=== PATIENT | male | born 1940 | race Caucasian/White ===

== ENCOUNTER → 2024-12-22 14:08 | Outpatient (REF) | payer OTHER, SELFPAY | LOC: RAD 14:08 | PROVIDERS: ATTENDING PHYSICIAN Internal Medicine Gastroenterology; FAMILY PHYSICIAN Family Medicine | DX: R19.4 Change in bowel habit (principal) | CPT/HCPCS: 74018 ==

== ENCOUNTER 2024-12-23 16:30 | Inpatient (IN) | payer OTHER, SELFPAY ==
[2024-12-23] VITALS (13 sets, daily range): BP systolic 152–179; BP diastolic 69–99; BMI 31.5
--- NOTE | 2024-12-23 09:41 | ED.GENMED ---
ED Provider Triage
<Nando Hillman PA-C - Last Filed: 12/23/24 09:49>
-
Patient seen by provider in Triage?: Seen in Triage
Attestation: A medical screening examination has been initiated by a qualified medical provider. Based on the assessment performed at this time, it has been determined that an emergent medical condition may exist and the patient has been informed
that further medical evaluation and possible additional diagnostic testing may be needed.
HPI: 84-year-old male presents to the emergency department for evaluation of a possible bowel obstruction. Reports abdominal distention and difficulty passing stool. Had an outpatient x-ray yesterday concerning for a large bowel obstruction,
denies pain at this time
GENERAL: Alert , in no apparent distress
EYE: No visual abnormalities.
NECK: Trachea midline
ENT: No visible abnormalities.
LUNGS: No acute respiratory distress
NEUROLOGICAL: Alert and oriented
SKIN: Skin intact. No visible changes.
MUSCULOSKELETAL: Moving extremities normally
PSYCH: Normal and appropriate interaction.
This is a medical evaluation conducted in person to initiate diagnostic evaluation and provide initial therapeutics. Please see further documentation by the treating clinician.
History of Present Illness
<Nando Hillman PA-C - Last Filed: 12/23/24 09:49>
General
Chief Complaint: Abdominal Symptoms
Time Seen by Provider: 12/23/24 11:48
<Magno Tipton MD - Last Filed: 12/23/24 15:05>
History of Present Illness
History of Present Illness:
Patient is an 84-year-old male who presents with constipation abdominal distention and possible obstruction. States he has been having trouble moving his bowels for the past couple of weeks. Reports that it feels too 'tight' to pass. No vomiting
or abdominal pain. No fevers or chills. 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
Phy Exam
<Magno Tipton MD - Last Filed: 12/23/24 15:05>
Physical Exam
Physical Exam:
GENERAL APPEARANCE: NAD, well developed/ well nourished
EYES lids/conjunctiva normal
EARS/NOSE/THROAT Mucous membranes moist, uvula midline without oral pharyngeal erythema, exudate or swelling
HEAD/NECK normocephalic atraumatic, neck is supple.
RESPIRATORY respiratory effort normal, speaks in full sentences, no accessory muscle use. Lungs clear to auscultation without rhonchi, wheezes, rales
CARDIAC Regular rate and rhythm, edema to bilateral lower extremities
ABDOMINAL abdomen is soft and distended. Mildly tender diffusely. No peritoneal signs.
RECTAL: no blood, no masses, unable to expel gas with manipulation
MUSCLES/EXTREMITIES No abnormal range of motion, no swelling.
SKIN Warm, pink and dry. No rashes
NEUROLOGICAL Speech is clear and appropriate. Normal level of consciousness. 5/5 strength in all extremities.
PSYCH Normal mood and affect. Judgement/competence is appropriate
Course
<Nando Hillman PA-C - Last Filed: 12/23/24 09:49>
Orders/Labs/Results
Orders:
Orders
12/23/24 09:48
Iohexol [Omnipaque] See Protocol PO NOW STA
12/23/24 09:49
CT Abd/pel W Iv And Oral Contr Urgent
Comment:
Reason For Exam: suspected large bowel obstruction
12/23/24 10:00
Complete Blood Count/With Diff Urgent
Comprehensive Metabolic Panel Urgent
Lactic Acid Q4H
Comment: CANCEL 2nd LACTIC ACID IF 1st LACTIC ACID IS LESS THAN 2
Abnormal Lab Results
12/23/24
10:00
RBC 4.25 L 10^6/uL
(4.70-6.10)
MCV 95.8 H fL
(80.0-94.0)
MCH 31.3 H pg
(27.0-31.0)
MCHC 32.7 L g/dL
(33.0-37.0)
Absolute Lymphs (auto) 0.9 L 10^3/uL
(1.2-3.4)
Immature Gran % 0.6 H %
(0-0.5)
Lymphocytes % 17.0 L %
(20.5-51.1)
Monocytes % 12.0 H %
(1.7-9.3)
Carbon Dioxide 31 H mmol/L
(22-30)
Glucose 107 H mg/dl
(70-99)
Total Protein 6.2 L g/dl
(6.3-8.2)
12/23/24 10:00
12/23/24 10:00
Vital Signs
Initial and Last Documented VS:
Initial Vital Signs
Temp Pulse Resp BP Pulse Ox
98.2 F 69 16 169/89 98
12/23/24 09:45 12/23/24 09:45 12/23/24 09:45 12/23/24 09:45 12/23/24 09:45
Last Documented Vital Signs
Temp Pulse Resp BP Pulse Ox
98.2 F 63 21 169/72 97
12/23/24 09:45 12/23/24 14:00 12/23/24 14:00 12/23/24 14:00 12/23/24 14:00
<Magno Tipton MD - Last Filed: 12/23/24 15:05>
Orders/Labs/Results
Orders:
Orders
12/23/24 09:48
Iohexol [Omnipaque] See Protocol PO NOW STA
12/23/24 09:49
CT Abd/pel W Iv And Oral Contr Urgent
Comment:
Reason For Exam: suspected large bowel obstruction
12/23/24 10:00
Complete Blood Count/With Diff Urgent
Comprehensive Metabolic Panel Urgent
Lactic Acid Q4H
Comment: CANCEL 2nd LACTIC ACID IF 1st LACTIC ACID IS LESS THAN 2
Abnormal Lab Results
12/23/24
10:00
RBC 4.25 L 10^6/uL
(4.70-6.10)
MCV 95.8 H fL
(80.0-94.0)
MCH 31.3 H pg
(27.0-31.0)
MCHC 32.7 L g/dL
(33.0-37.0)
Absolute Lymphs (auto) 0.9 L 10^3/uL
(1.2-3.4)
Immature Gran % 0.6 H %
(0-0.5)
Lymphocytes % 17.0 L %
(20.5-51.1)
Monocytes % 12.0 H %
(1.7-9.3)
Carbon Dioxide 31 H mmol/L
(22-30)
Glucose 107 H mg/dl
(70-99)
Total Protein 6.2 L g/dl
(6.3-8.2)
12/23/24 10:00
12/23/24 10:00
Vital Signs
Initial and Last Documented VS:
Initial Vital Signs
Temp Pulse Resp BP Pulse Ox
98.2 F 69 16 169/89 98
12/23/24 09:45 12/23/24 09:45 12/23/24 09:45 12/23/24 09:45 12/23/24 09:45
Last Documented Vital Signs
Temp Pulse Resp BP Pulse Ox
98.2 F 63 21 169/72 97
12/23/24 09:45 12/23/24 14:00 12/23/24 14:00 12/23/24 14:00 12/23/24 14:00
<Magno Tipton MD - Last Filed: 12/23/24 15:05>
*Radiology
Radiology exam reviewed: radiology read reviewed
*Pulse Oximetry
Patient hypoxic: no
*Critical Care Note
Total Time (30-74mins, 75-104mins- exclusive of procedures): Not Applicable
ED Attending Note
<Nando Hillman PA-C - Last Filed: 12/23/24 09:49>
-
Portions of this chart may have been created with voice recognition software.� Occasional wrong word or��sound alike� substitutions may have occurred due to the inherent limitations of voice recognition software.
<Magno Tipton MD - Last Filed: 12/23/24 15:05>
ED Attending Note
ED Attending Note:
Patient presents with no distention and constipation. He is nontoxic and well-appearing. He has no vomiting or abdominal pain however given his x-ray findings will CT scan abdomen to rule out obstruction
Reviewed CT results, discussed case with both GI [facility] consultant Dr Smallwood and Dr. Wise with colorectal surgery
Recommend hospitalist admission, they will see patient in consult
he remains stable, and non toxic
Discharge Plan
Departure
Referrals:
Cisco Farris MD [Family Provider] -
Interventions
Interventions:
*Risk Screen - Suicide Last Done: 12/23/24 09:45
*General Assessment Last Done: 12/23/24 12:25
*Neglect/Abuse Screening Last Done: 12/23/24 09:45
ED- Fall Risk Assessment Last Done: 12/23/24 12:34
*ED COVID-19 Vaccine History Last Done: 12/23/24 12:25
CR-Vpgjkh-Dhmtljlfch Assessment Last Done: 12/23/24 12:33
Discharge Date and Time
Print Language: MARTINIQUAIS
[2024-12-23] MEDS: OMNIPAQUE 50 ML PO (09:52)
[2024-12-23 10:09] LABS: % Immature Granulocytes 0.6 % (0-0.5); % Neutrophils 68.4 % (42.2-75.2); Absolute Basophils 0.1 10^3/uL (0-0.2); Absolute Eosinophils 0.1 10^3/uL (0-0.7); Absolute Lymphocytes 0.9 10^3/uL (1.2-3.4); Absolute Monocytes 0.6 10^3/uL (0.1-0.6); Absolute Neutrophils 3.4 10^3/uL (1.4-6.5); Hematocrit 40.7 % (39.0-52.0); Hemoglobin 13.3 g/dL (13.0-18.0); Mean Corp Hgb Conc. 32.7 g/dL (33.0-37.0); Mean Corpuscular Hgb 31.3 pg (27.0-31.0); Mean Corpuscular Volume 95.8 fL (80.0-94.0); Mean Platelet Volume 9.5 fL (7.4-10.4); Nucleated Red Blood Cells % 0 % (-); Platelet Count 175 10^3/uL (130-400); Red Blood Cell Count 4.25 10^6/uL (4.70-6.10); Red Cell Dist. Width 13.3 % (11.5-14.5)
[2024-12-23 10:22] LABS: Lactic Acid 0.8 mmol/L (0.7-2.0)
[2024-12-23 10:38] LABS: ALT (SGPT) 18 U/L (0-50); AST (SGOT) 20 U/L (17-59); Albumin 3.9 g/dl (3.5-5.0); Alkaline Phosphatase 104 U/L (38-126); Blood Urea Nitrogen 17 mg/dl (9-20); Calcium 9.1 mg/dl (8.4-10.2); Carbon Dioxide 31 mmol/L (22-30); Chloride 101 mmol/L (98-107); Glucose 107 mg/dl (70-99); Potassium 4.7 mmol/L (3.5-5.1); Sodium 135 mmol/L (135-145); Total Protein 6.2 g/dl (6.3-8.2); eGFR > 60.00
--- NOTE | 2024-12-23 15:43 | CON.GI ---
Addendum entered and electronically signed by Anne Smallwood DO 12/23/24 18:58:
Patient seen and examined independently of ДМИТРИЙ. I agree with her note with my additions below
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 He comes in at the request of his primary GI doctor, Dr. Barone after getting an outpatient x-ray showing a
significantly dilated left colon. Outpatient he saw Dr. Scott on this week and was complaining of some change in bowel habits were still moving his bowels but they were smaller and softer and he was straining to go. He was not on a previous
bowel regimen but started MiraLAX at the request of his PCP about 3 to 4 weeks ago. He said that did help but it was not sufficient. He did not take any other medications and no rectal therapy. He is only on Lexapro and Ativan. No
cardiopulmonary disease. His father had colon cancer at age 60 and his last colonoscopy was in 2009 having 1 rectal adenoma. He was supposed to repeat every 5 years but has not done so. He has noticed some bloating over the past few weeks as well
but no nausea and no vomiting and no significant abdominal pain.
I did review his images and also spoke to Dr. Nagi Wise from colorectal surgery. We both reviewed the images together. His left-sided distention is significant going all the way into his chest/thorax to the level of the aortic arch.
I took him for a flexible sigmoidoscopy. See the note for details but I was able to place a decompression tube in the descending colon. That has been confirmed on abdominal x-ray which I also reviewed at the bedside.
He is okay for clear liquid diet. Will monitor him over the weekend but likely will need a repeat surgical resection to prevent this from occurring again.
Currently the decompression tube is set to gravity.
I discussed this with the hospitalist. Currently on the monitor he is having some PACs PVCs and possibly A-fib. to get a twelve-lead EKG put him on telemetry
Original Note:
Consultation
-
Date/Time Consultation Requested: 12/23/24 1515
Date/Time Consultation Performed: 12/23/24 1545
Requesting Provider: Magno Durán MD
Performing Provider: ДМИТРИЙ Silverio, Anne Smallwood DO
Reason for Consultation: obstruction
Medical History
Chief Complaint / HPI
Chief Complaint: abdominal distention
History of Present Illness:
Pt is a 84yo with hx minimal past medical issues -- depression, TA polyps, Renal calculi, hepatic cysts, enlarged prostate per imaging and prior hx sigmoid volvulus in 2004. He had colonic decompression and then completed sigmoid colectomy with
Dr. Overton. Path with marked distention c/w volvulus no necrosis or perforation. Pt has transient rate controlled afib with conversion to NSR. He has done extremely well since that time. He has last colonoscopy 2009 with TA polyp and was due
around covid and did not complete. He now presents with onset of bloating over last few weeks with constipation. He has tried miralax with improvement. CT completed 12/23 with gaseous distention of sigmoid and descending with concern for volvulus
and no close loop obstruction. Pseudoobstruction in differential. Other occult cause could be large bowel obstruction at level of rectum with large amount of stools in distal sigmoid.
In review with patient despite distention he denies abdominal pain. He dose admits to some soft stools with miralax use but change in stool pattern. He also noted LE edema starting a few months ago. he denies dysphagia, GERD, nausea,
vomiting, diarrhea, or bleeding. Father with family hx colon CA at age 60. last colonoscopy 06/2010 [facility] - One 9 mm polyp in the rectum (benign appearing). bx tubular adenoma. Denies NSAID or anticoagulation use.
-
Past Medical History
Past Medical History: Arrhythmias (transient afib with prior volulus surgery ) and Other (renal calculi hepatic cyst, enlarged prostate per imaging, TA colon polyps)
Past Surgical History: Bowel Resection (sigmoid resection 2004 for sigmoid volvulus) and Tonsilectomy
Social History
Tobacco: Non-Smoker
Alcohol: None
Drug: None
Living: Alone
Employment: Retired
Family History
Family History: Other (father with colon CA in 60's)
Allergies / Home Medications
Allergy/AdvReac Type Severity Reaction Status Date / Time
NKA - No Known Allergies Allergy Uncoded 03/16/08 13:50
�Medication �Instructions �Recorded
ascorbic acid (vitamin C) 500 mg 500 mg PO DAILY 12/23/24
tablet (Vitamin C)
aspirin 81 mg tablet,delayed 81 mg PO DAILY 12/23/24
release
cholecalciferol (vitamin D3) 25 25 mcg PO DAILY 12/23/24
mcg (1,000 unit) tablet (Vitamin
D3)
escitalopram oxalate 5 mg tablet 5 mg PO DAILY 12/23/24
(Lexapro)
lecithin 400 mg capsule 400 mg PO DAILY 12/23/24
lorazepam 0.5 mg tablet 0.25 mg PO DAILY 12/23/24
saw palmetto 160 mg capsule 160 mg PO DAILY 12/23/24
therapeutic multivitamin 1 tab PO DAILY 12/23/24
vitamin B complex 1 tab PO DAILY 12/23/24
vitamins A,C,T-irxa-wdrtsp 2,148 1 tab PO DAILY 12/23/24
mcg-113 mg-45 mg-17.4 mg tablet
(PreserVision AREDS)
Review of Systems
-
History Source: Patient and Family
Constitutional: Reports No Symptoms
EENT: Reports No Symptoms
Respiratory: Reports No Symptoms
Cardiac: Reports No Symptoms
Abdomen/GI: Reports Constipated and Other (abdominal distention)
Musculoskeletal: Reports Edema
Skin: Reports No Symptoms
Neurological: Reports Weakness
Endocrine: Reports No Symptoms
Hematologic/Lymphatic: Reports No Symptoms
Vital Signs
Temp Pulse Resp BP Pulse Ox
98.2 F 63 21 169/72 97
12/23/24 09:45 12/23/24 14:00 12/23/24 14:00 12/23/24 14:00 12/23/24 14:00
Physical Exam
Exam
General: Well Developed and No Apparent Distress
HEENT: Normocephalic and Anicteric
Respiratory: Clear
Cardiac: Regular Rhythm and Peripheral Edema
GI: Soft, Non Tender and Distended
Musculoskeletal: No Clubbing and No Cyanosis
Skin: Warm and Dry
Neuro: Awake, Alert and AO x 3
Psych: Calm
Results
WBC 5.0 10^3/uL (4.8-10.8) 12/23/24 10:00
Hgb 13.3 g/dL (13.0-18.0) 12/23/24 10:00
Hct 40.7 % (39.0-52.0) 12/23/24 10:00
MCV 95.8 fL (80.0-94.0) H 12/23/24 10:00
Plt Count 175 10^3/uL (130-400) 12/23/24 10:00
Absolute Neuts (auto) 3.4 10^3/uL (1.4-6.5) 12/23/24 10:00
Sodium 135 mmol/L (135-145) 12/23/24 10:00
Potassium 4.7 mmol/L (3.5-5.1) 12/23/24 10:00
Chloride 101 mmol/L (98-107) 12/23/24 10:00
Carbon Dioxide 31 mmol/L (22-30) H 12/23/24 10:00
BUN 17 mg/dl (9-20) 12/23/24 10:00
Creatinine 0.9 mg/dL (0.7-1.3) 12/23/24 10:00
Calcium 9.1 mg/dl (8.4-10.2) 12/23/24 10:00
Total Bilirubin 1.0 mg/dl (0.2-1.3) 12/23/24 10:00
AST 20 U/L (17-59) 12/23/24 10:00
ALT 18 U/L (0-50) 12/23/24 10:00
Alkaline Phosphatase 104 U/L (38-126) 12/23/24 10:00
Diagnostic Image Results:
12/23/24 CT Abd/pel W Iv And Oral Contr
Significant gaseous distention of the sigmoid colon and descending colon. The orientation of dilated bowel loops is similar to such as can be seen with a sigmoid volvulus, but no significant twisting of the mesentery or mesenteric vessels, and no
appreciable crossing/narrowing of bowel loops to confirm a closed loop obstruction. A colonic pseudoobstruction would be a differential consideration. Clinical correlation is recommended. Follow-up imaging could be performed to assess for further
passage of enteric contrast material.
Other occult causes of large bowel obstruction at the level of the rectum or obstruction secondary to a large amount of stool in the distal sigmoid colon and rectum could also be considered.
Other chronic findings, as detailed above.
Prior GI Procedures:
EGD: none
Colonoscopy: 06/2010 [facility]os[facility] - One 9 mm polyp in the rectum (benign appearing). bx tubular adenoma
Assessment / Plan
-
Pt is a 84yo with hx minimal past medical issues -- depression, TA polyps, Renal calculi, hepatic cysts, enlarged prostate per imaging and prior hx sigmoid volvulus in 2004. He had colonic decompression and then completed sigmoid colectomy with
Dr. Overton. Path with marked distention c/w volvulus no necrosis or perforation. Pt has transient rate controlled afib with conversion to NSR. He has done extremely well since that time. He has last colonoscopy 2009 with TA polyp and was due
around covid and did not complete. He now presents with onset of bloating over last few weeks with constipation. He has tried miralax with improvement. CT completed 12/23 with gaseous distention of sigmoid and descending with concern for volvulus
and no close loop obstruction. Pseudoobstruction in differential. Other occult cause could be large bowel obstruction at level of rectum with large amount of stools in distal sigmoid.
-Ct with concern for volvulus vs constipation
-recent bloating/change in bowel habits
-hx prior sigmoid volvulus with sigmoid resection 2004
-new LE edema
other med problems:
-transient afib with surgery 2004
-depression
-TA polyps
-renal calculi/hepatic cyst/enlarge prostate on imaging
-family hx colon CA
PLAN:
Plan for flex today to eval and decompress
NPO
t/c surgical eval pending finding on flex
family updated
work up per med team with new LE edema
-
-
Thank you for consultation and allowing me to participate in the patient's care. Please call the loss prevention auditor GI physician during the after hours with any questions or concerns.
--- NOTE | 2024-12-23 15:59 | HPS.HSE ---
Family Physician
-
Family Physician: Cisco Farris
Chief Complaint
-
Abdominal distention
History of Present Illness
Patient is 84 years old male with prior history of sigmoid volvulus and bowel resection 2004, clean colonoscopy in 2009 who complains of abdominal distention and constipation. He has daily bowel movements that he describes change in caliber.
Besides the abdominal distention he denies any nausea or vomiting. Denies hematochezia. Denies fever. Given the persistent symptoms patient was sent to the emergency room for evaluation. CT scan of the abdomen pelvis with double contrast showed
gaseous distention of the sigmoid colon and descending colon with concern for sigmoid volvulus.
On physical examination patient does not appear toxic. Afebrile hemodynamically stable. He has distended abdomen, although relatively benign on exam.
His laboratory workup including CBC and BMP all unremarkable.
Medical History
Past Medical History
Past Medical History: Reports Other (Anxiety/depression); Denies CAD, CHF or NIDDM
Past Surgical History: Reports Other (Sigmoid volvulus with resection 2004)
Social History
Tobacco: Non-smoker
Alcohol: None
Living: With Family
Employment: Retired
Family History
Family History: Not pertinent
Allergies / Home Medications
Allergies reflects when Allergies were last updated in [facility].
Home Medications with original date entered in [facility]
Allergy/Medication List:
Allergies
Allergy/AdvReac Type Severity Reaction Status Date / Time
NKA - No Known Allergies Allergy Uncoded 03/16/08 13:50
Home Medications
ascorbic acid (vitamin C) 500 mg tablet (Vitamin C) 500 mg PO DAILY 12/23/24
aspirin 81 mg tablet,delayed release 81 mg PO DAILY 12/23/24
cholecalciferol (vitamin D3) 25 mcg (1,000 unit) tablet (Vitamin D3) 25 mcg PO DAILY 12/23/24
escitalopram oxalate 5 mg tablet (Lexapro) 5 mg PO DAILY 12/23/24
lecithin 400 mg capsule 400 mg PO DAILY 12/23/24
lorazepam 0.5 mg tablet 0.25 mg PO DAILY 12/23/24
saw palmetto 160 mg capsule 160 mg PO DAILY 12/23/24
therapeutic multivitamin 1 tab PO DAILY 12/23/24
vitamin B complex 1 tab PO DAILY 12/23/24
vitamins A,C,H-grol-npfdzk 2,148 mcg-113 mg-45 mg-17.4 mg tablet (PreserVision AREDS) 1 tab PO DAILY 12/23/24
Review of Systems
-
A 12 point ROS was completed and negative except as noted: Yes
Abdomen/GI: Reports See HPI
Physical Exam
Vital Signs
Vital Signs
Temp Pulse Resp BP Pulse Ox
98.2 F 63 21 169/72 97
12/23/24 09:45 12/23/24 14:00 12/23/24 14:00 12/23/24 14:00 12/23/24 14:00
Physical Exam
General: Well Developed, Well Nourished and No Apparent Distress
HEENT: NormoCephalic, Moist mucous membranes and Atraumatic
Respiratory: Clear
Cardiac: S1/S2 and Regular Rhythm; No Murmur or Rub
GI: Soft, Non Tender, Non Distended and Normal Bowel Sounds; No Organomegaly
Rectal: Deferred by Provider
Musculoskeletal: No Clubbing, No Cyanosis and No Edema
Skin: No Rash
Neuro: Nonfocal/grossly intact
Laboratory Results
-
12/23/24 10:00
12/23/24 10:00
Laboratory Results
Lactic Acid Cancelled 12/23/24 14:00
Total Bilirubin 1.0 mg/dl (0.2-1.3) 12/23/24 10:00
AST 20 U/L (17-59) 12/23/24 10:00
ALT 18 U/L (0-50) 12/23/24 10:00
Alkaline Phosphatase 104 U/L (38-126) 12/23/24 10:00
Impression/Plan
-
IMPRESSION:
Presentation with constipation, change in bowel movement caliber, persistent abdominal distention.
Prior history of sigmoid volvulus requiring urgent bowel resection 2004
Anxiety/depression
PLAN:
CT scan abdomen pelvis with IV and oral contrast:
Significant gaseous distention of the sigmoid colon and descending colon. The orientation of dilated bowel loops is similar to such as can be seen with a sigmoid volvulus, but no significant twisting of the mesentery or mesenteric vessels, and no
appreciable crossing/narrowing of bowel loops to confirm a closed loop obstruction. A colonic pseudoobstruction would be a differential consideration. Clinical correlation is recommended. Follow-up imaging could be performed to assess for further
passage of enteric contrast material.
He is abdominal exam relatively benign for volvulus.
Nontoxic-appearing overall with CBC and BMP is not suggestive of bowel ischemia.
Discussed with GI.
Plan is for urgent sigmoidoscopy to rule out obstruction, tumor etc.
Check TSH given chronic constipation
Anxiety/depression.
On Lexapro and lorazepam
[2024-12-23 19:31] LABS: TSH 0.93 uIU/ml (0.47-4.68)
--- NOTE | 2024-12-23 19:39 | CON.CRS ---
Consultation
-
Reason for Consultation: possible sigmoid volvulus
Medical History
-
History of Present Illness:
Patient is an 84-year-old male with PMH of anxiety/depression, kidney stones, remote history of A-fib, sigmoid volvulus s/p sigmoidectomy in 2004 who presents after 1 month of worsening constipation and bloating. He first noticed issues around
[place] time. Primarily, he had a harder time evacuating stool, requiring significant straining. He continued having bowel movements, including flatus. During this time, he denied any N/V or chest pain. He denied any SOB, but did admit that he
had to catch his breath while singing in a way he had not in the past. He was started on MiraLAX by his PCP, which helped initially. He was referred to Dr. Barone with GI who obtained abdominal x-ray, which showed dilated colon up to 15 cm.
Therefore, he was instructed to go to the ED. In the ED, his WBC was 5.[address] scan showed massively dilated sigmoid colon with the configuration of a possible sigmoid volvulus. However, there was no twisting of the mesentery or BirdBeak sign,
so pseudoobstruction could not be ruled out. He underwent flexible sigmoidoscopy by Dr. Smallwood, who identified the previous colon anastomosis and identified a tapering in the lumen, concerning for sigmoid volvulus at about 35 cm. There was no
evidence of necrosis and the colon was decompressed. A decompression tube was left in place. The patient was seen and evaluated in PACU.
Past Medical History
Past Medical History: Other (As above)
Past Surgical History: Other (Sigmoidectomy [address] Overton, tonsils)
Social History
Tobacco: Non-Smoker
Alcohol: None
Drug: None
Personal:
Living: Other ( 1 year ago due to pancreatic cancer; has 3 children and identified Ashleigh Saucedo as his surrogate decision maker ([phone]))
Employment: Retired
Family History
Family History: Other (Father with colon cancer)
Allergies / Home Medications
Allergy/AdvReac Type Severity Reaction Status Date / Time
No Known Allergies Allergy Unverified 12/23/24 18:30
�Medication �Instructions �Recorded �Confirmed �Type
ascorbic acid (vitamin C) 500 mg 500 mg PO DAILY 12/23/24 12/23/24 History
tablet (Vitamin C)
aspirin 81 mg tablet,delayed 81 mg PO DAILY 12/23/24 12/23/24 History
release
cholecalciferol (vitamin D3) 25 25 mcg PO DAILY 12/23/24 12/23/24 History
mcg (1,000 unit) tablet (Vitamin
D3)
escitalopram oxalate 5 mg tablet 5 mg PO DAILY 12/23/24 12/23/24 History
(Lexapro)
lecithin 400 mg capsule 400 mg PO DAILY 12/23/24 12/23/24 History
lorazepam 0.5 mg tablet 0.25 mg PO DAILY 12/23/24 12/23/24 History
saw palmetto 160 mg capsule 160 mg PO DAILY 12/23/24 12/23/24 History
therapeutic multivitamin 1 tab PO DAILY 12/23/24 12/23/24 History
vitamin B complex 1 tab PO DAILY 12/23/24 12/23/24 History
vitamins A,C,M-ffez-yyyepe 2,148 1 tab PO DAILY 12/23/24 12/23/24 History
mcg-113 mg-45 mg-17.4 mg tablet
(PreserVision AREDS)
Review of Systems
-
A 10 point review of systems was completed, and was negative except as per HPI.
Physical Exam
Vital Signs
Temp 98 F 12/23/24 18:05
Pulse 63 12/23/24 18:05
Resp Rate 19 12/23/24 18:05
Blood pressure 152/98 12/23/24 18:05
SaO2 100 12/23/24 18:05
12/22/24 12/23/24 12/24/24
06:59 06:59 06:59
Actual Weight 108.4 kg
Body Mass Index (BMI) 31.5
Lab Results / Allergies
12/23/24 10:00
12/23/24 10:00
WBC 5.0 10^3/uL (4.8-10.8) 12/23/24 10:00
Hgb 13.3 g/dL (13.0-18.0) 12/23/24 10:00
Hct 40.7 % (39.0-52.0) 12/23/24 10:00
Plt Count 175 10^3/uL (130-400) 12/23/24 10:00
Abs Immat Gran (auto) 0.0 10^3/uL (0-0.05) 12/23/24 10:00
Neutrophils % 68.4 % (42.2-75.2) 12/23/24 10:00
Allergy/AdvReac Type Severity Reaction Status Date / Time
No Known Allergies Allergy Unverified 12/23/24 18:30
Physical Exam
General: Well Developed, Well Nourished and No Apparent Distress
HEENT: Normocephalic and Atraumatic
Respiratory: Non Labored Respirations
GI: Soft, Non Tender and Distended (Mildly distended with tympany towards the mid to upper abdomen; rectal tube in place)
Skin: Warm and Dry
Neuro: Awake, Alert and AO x 3
Assessment / Plan
-
84-year-old male with PMH of anxiety/depression, kidney stones, remote history of A-fib, sigmoid volvulus s/p sigmoidectomy in 2004 who presents after 1 month of worsening constipation and bloating associated with straining and some dyspnea on
exertion, but continued bowel function daily without N/V. Outpatient workup by Dr. Barone revealed dilated distal colon up to 15 cm and pt was instructed to go to ED for evaluation. His last colonoscopy was 2009 which showed a rectal TA and
recommended to repeat in 4 years. In the ED, his WBC was 5.[address] scan showed a massively dilated sigmoid colon with the configuration of a possible sigmoid volvulus. However, there was no twisting of the mesentery or bird-beak sign, so
pseudoobstruction could not be ruled out. He underwent flexible sigmoidoscopy by Dr. Smallwood, who identified the previous colon anastomosis and identified a tapering in the lumen, concerning for sigmoid volvulus at about 35 cm. There was no evidence
of necrosis and the colon was decompressed. Decompression tube was left in place.
AFVSS
� Subacute partial sigmoid volvulus with massive distention of the sigmoid extending up to the splenic flexure with mass effect on the left chest and displacement of the mediastinum to the right
�S/p decompression with rectal tube in place; appreciate GI, discussed with Dr. Smallwood
�Although the imaging was not typical for a true sigmoid volvulus, endoscopic findings were consistent with at least partial volvulus and ruled out an obstructing distal mass; adhesions from previous surgery likely contributing to the partial
obstruction
�Discussed treatment options with the patient, including semielective redo sigmoidectomy this admission versus nonoperative measures; explained the significantly elevated risk of recurrence if nonoperative measures were elected; explained the
increased risks associated with redo surgery; patient currently agreeable with semielective sigmoidectomy to decrease the risk of recurrence; explained the risks of waiting for cardiac workup, including but not limited to, recurrence of volvulus
requiring urgent surgery; explained the nature of the surgery to include an exploration, segmental colectomy with possible anastomosis versus ostomy; patient understood well and all questions were answered
�Request cardiac evaluation due to the mass effect on the mediastinum and recent history of JAFFE and remote history of A-fib
�Will allow colon to continue decompressing over the weekend with plans for surgery the beginning of next week depending on OR availability
�Okay for clears, but would leave on clears for the weekend, okay for p.o. meds
�If colon decompresses adequately, will consider bowel prep prior to surgery
�Recommend DVT PPx with Lovenox
� Appreciate hospitalist
--- NOTE | 2024-12-23 19:51 | SUR.PHASEI ---
pt w/sigmoid colonic tube taped in place to buttocks, scant drainage present in tubing, none in bag. EKG done, pt to be placed on telemetry on unit
--- NOTE | 2024-12-23 20:20 | PTCARENOTE ---
Pt arrived via stretcher at 1930. assit X2 trap puller. VSS. IVF infusing. oriented to room and call webb. bed in lowest position and locked.
[2024-12-23] MEDS: NSS 1000 IV (20:38)
[2024-12-24 03:30] VITALS: BP 147/73
[2024-12-24] MEDS: NSS 1000 IV ×2 (05:52→15:39)
[2024-12-24] MEDS: TYLENOL 650 MG PO (06:13)
[2024-12-24 07:18] VITALS: BP 153/61
--- NOTE | 2024-12-24 08:33 | CON.CAR ---
Addendum entered and electronically signed by Nagi Shepard MD 12/24/24 12:28:
Patient seen and examined in collaboration with ORDER ENTRY ADMINISTRATOR; agree with below.
-84-year-old male admitted with severe sigmoid volvulus with massive distention and needs to undergo surgery; there is mediastinal displacement.
-Remote history of transient tabitha-procedural atrial fibrillation in 2004 at the time of sigmoidectomy.
-The patient has no active cardiac symptoms and his cardiac examination is benign.
-The patient currently is in sinus rhythm with frequent PACs on telemetry, no atrial fibrillation.
-The patient can proceed with surgery as scheduled as he appears to be medically optimized from a cardiac standpoint with no active cardiac symptoms.
-Can continue program services planner tabitha-procedurally; Cardiology will remain available peripherally on an as needed basis.
Addendum entered and electronically signed by ДМИТРИЙ Sandra 12/24/24 10:46:
Reviewed multiple archived records, 02/28/05 discharge summary states post op sigmoid colectomy 02/21/05 he had rate controlled Afib and converted to NSR after given beta mikki. He had an echo 02/24/05, Definity contrast used, probable normal LVEF and
no significant valve disease. No recurrence of Afib on any other records.
Original Note:
Consultation
Consultation Request
Date/Time Consultation Requested: 12/24/24 7:35a
Date/Time Consultation Performed: 12/24/24 8:30a
Requesting Provider: Dr. Chang
Performing Provider: ДМИТРИЙ Sandra for Dr. Shepard
Reason for Consultation: mass effect on the mediastinum, h/o of JAFFE and remote Afib
Medical History
-
Chief Complaint: constipation, bloating
History of Present Illness:
Mr. Almaraz is an 84 yo male with sigmoid volvulus s/p sigmoidectomy in 2004, kidney stones, and anxiety/depression, who presents with c/o constipation and bloating x 1 month. He is admitted to the hospitalist service with GI and colorectal surgery
following. Imaging is concerning for subacute partial sigmoid volvulus with massive distention of the sigmoid extending up to the splenic flexure and he underwent sigmoidoscopy yesterday finding suspected volvulus around 35-40cm, successful
complete decompression achieved and decompression tube placed. Colorectal surgery is requesting cardiac evaluation due to concern of significant left sided distention up to his chest and displacement of the mediastinum to the right with recent JAFFE
complaints. Post sigmoidoscopy there was concern for Afib or PACs, reviewed EKG with SR with PACs. No Afib seen on tele, he denies having any cardiac history, including never having Afib. He states having JAFFE or SOB when talking the last couple
weeks, but this has now resolved since complete decompression during sigmoidoscopy yesterday.
Past Medical History
Past Medical History: Other (as above)
Past Surgical History: Other (as above)
Social History
Tobacco: Non-Smoker
Alcohol: None
Personal:
Living: With Family
Employment: Retired
Family History
Family History: Reviewed & Not Pertinent
Allergies / Home Medications
Allergy/AdvReac Type Severity Reaction Status Date / Time
No Known Allergies Allergy Unverified 12/23/24 18:30
�Medication �Instructions �Recorded �Confirmed �Type
ascorbic acid (vitamin C) 500 mg 500 mg PO DAILY 12/23/24 12/23/24 History
tablet (Vitamin C)
aspirin 81 mg tablet,delayed 81 mg PO DAILY 12/23/24 12/23/24 History
release
cholecalciferol (vitamin D3) 25 25 mcg PO DAILY 12/23/24 12/23/24 History
mcg (1,000 unit) tablet (Vitamin
D3)
escitalopram oxalate 5 mg tablet 5 mg PO DAILY 12/23/24 12/23/24 History
(Lexapro)
lecithin 400 mg capsule 400 mg PO DAILY 12/23/24 12/23/24 History
lorazepam 0.5 mg tablet 0.25 mg PO DAILY 12/23/24 12/23/24 History
saw palmetto 160 mg capsule 160 mg PO DAILY 12/23/24 12/23/24 History
therapeutic multivitamin 1 tab PO DAILY 12/23/24 12/23/24 History
vitamin B complex 1 tab PO DAILY 12/23/24 12/23/24 History
vitamins A,C,I-jcvk-uikwnk 2,148 1 tab PO DAILY 12/23/24 12/23/24 History
mcg-113 mg-45 mg-17.4 mg tablet
(PreserVision AREDS)
Review of Systems
-
All other systems: Negative unless noted
Constitutional: No Symptoms
Physical Exam
Vital Signs
Temp Pulse Resp BP Pulse Ox
98.5 F 61 16 153/61 95
12/24/24 07:18 12/24/24 07:18 12/24/24 07:18 12/24/24 07:18 12/24/24 07:18
Lab Results
12/23/24 10:00
12/23/24 10:00
Physical Exam
General: Well Developed and No Apparent Distress
HEENT: Normocephalic and Anicteric
Respiratory: Clear and Non Labored Respirations
Cardiac: S1/S2 and Regular Rhythm
Breast: Deferred by me
GI: Soft and Non Tender (mild lower abdomen)
Rectal: Deferred by Provider
Musculoskeletal: No Clubbing, No Cyanosis and No Edema
Skin: Warm and Dry
Neuro: AO x 3
Hematologic/Lymphatic: No Lymphadenopathy
Psych: Calm
Impression / Plan
-
Subacute partial sigmoid volvulus - per GI and colorectal surgery.
- s/p sigmoidoscopy with successful complete decompression achieved and decompression tube placed 12/23/24.
- he no longer c/o JAFFE or SOB since decompression.
- possible surgery per colorectal surgery.
PACs - seen on tele.
- post sigmoidoscopy GI reported PACs with questionable Afib.
- no Afib seen on tele or EKG. no history of Afib either.
Anxiety/depression - stable on meds.
Data Reviewed
-
EKG: Tracing Personally Visualized and interpreted (SR with PACs 68 b[address] Scan: Report Reviewed by me
Labs: Labs Reviewed by me
[2024-12-24] MEDS: LEXAPRO 5 MG PO (08:40)
[2024-12-24] MEDS: ATIVAN 0.25 MG PO (08:40)
--- NOTE | 2024-12-24 11:12 | W.PN.GI.CBS2 ---
Today's Communication / Plan
-
-- Management per colorectal surgery going forward
GI will sign off. Please call back if we can help in any way
--
Assessment / Plan
-
Pt is a 84yo with hx minimal past medical issues -- depression, TA polyps, Renal calculi, hepatic cysts, enlarged prostate per imaging and prior hx sigmoid volvulus in 2004. He had colonic decompression and then completed sigmoid colectomy with
Dr. Overton. Jaime with marked distention c/w volvulus no necrosis or perforation. Pt has transient rate controlled afib with conversion to NSR. He has done extremely well since that time. He has last colonoscopy 2009 with TA polyp and was due
around covid and did not complete. He now presents with onset of bloating over last few weeks with constipation. He has tried miralax with improvement. CT completed 12/23 with gaseous distention of sigmoid and descending with concern for volvulus
and no close loop obstruction. Pseudoobstruction in differential. Other occult cause could be large bowel obstruction at level of rectum with large amount of stools in distal sigmoid.
-Ct with concern for volvulus vs constipation
-recent bloating/change in bowel habits
-hx prior sigmoid volvulus with sigmoid resection 2004
-new LE edema
other med problems:
-transient afib with surgery 2004
-depression
-TA polyps
-renal calculi/hepatic cyst/enlarge prostate on imaging
-family hx colon CA
12/23/2024 -flexible sigmoidoscopy, anal spasm on exam, visualized prior suture, no mass found, suspected mild volvulus around 35 to 40 cm. There was narrowing and was mildly twisted but able to get the scope through with water insufflation,
complete decompression and decompression tube was placed.
12/24/24 -reviewed x-ray from today with the family. They were able to visualize the improvement in the left side of his colon
-- We discussed that his colon is also pushing his left hemidiaphragm was actually to the level of the aortic arch. This may have contributed to his shortness of breath
-- Patient does state his shortness of breath feels better since decompression
-- Diet and management per colorectal surgery going forward
-GI will sign off but we are here to help if you have any issues questions or anything we can do to help
-- patient and family aware
-- discussed with hospitalist
Subjective
Subjective
Date of Service: December 24, 2024
Patient feels good. His abdomen is soft. He states his shortness of breath has even improved
Objective
Data Reviewed
Laboratory Data:
Laboratory Results
12/23/24 10:00
12/23/24 10:00
Laboratory Results
Total Bilirubin 1.0 mg/dl (0.2-1.3) 12/23/24 10:00
AST 20 U/L (17-59) 12/23/24 10:00
ALT 18 U/L (0-50) 12/23/24 10:00
Alkaline Phosphatase 104 U/L (38-126) 12/23/24 10:00
Vital Signs and I&O:
Vital Signs
Temp Pulse Resp BP Pulse Ox
98.5 F 61 16 153/61 95
12/24/24 07:18 12/24/24 07:18 12/24/24 07:18 12/24/24 07:18 12/24/24 07:18
I&O
12/23/24 12/24/24 12/25/24
06:59 06:59 06:59
Intake Total 1680 / 1680
Output Total 1650 / 1650
Balance
Physical Exam
Physical Exam
HEENT: Anicteric
Cardiology: Normal Sinus Rhythm
GI: Soft, Non Distended and Non Tender
Extremities: No Edema
Neuro: Non Focal
[2024-12-24 11:54] VITALS: BP 168/69
[2024-12-24 12:07] LABS: % Basophils 0.5 % (0-2); % Eosinophils 0.6 % (0-6); % Immature Granulocytes 0.5 % (0-0.5); % Lymphocytes 13.6 % (20.5-51.1); % Monocytes 12.1 % (1.7-9.3); % Neutrophils 72.7 % (42.2-75.2); Absolute Lymphocytes 0.9 10^3/uL (1.2-3.4); Absolute Monocytes 0.8 10^3/uL (0.1-0.6); Absolute Neutrophils 4.6 10^3/uL (1.4-6.5); Hematocrit 39.5 % (39.0-52.0); Hemoglobin 12.9 g/dL (13.0-18.0); Mean Corp Hgb Conc. 32.7 g/dL (33.0-37.0); Mean Corpuscular Hgb 30.6 pg (27.0-31.0); Mean Corpuscular Volume 93.6 fL (80.0-94.0); Mean Platelet Volume 9.5 fL (7.4-10.4); Nucleated Red Blood Cells % 0 % (-); Platelet Count 158 10^3/uL (130-400); Red Blood Cell Count 4.22 10^6/uL (4.70-6.10); Red Cell Dist. Width 13.2 % (11.5-14.5); White Blood Cell Count 6.3 10^3/uL (4.8-10.8)
[2024-12-24 12:18] LABS: Blood Urea Nitrogen 15 mg/dl (9-20); Calcium 8.7 mg/dl (8.4-10.2); Carbon Dioxide 30 mmol/L (22-30); Chloride 101 mmol/L (98-107); Estimated Creatinine Clearance 77 ml/min; Glucose 123 mg/dl (70-99); Potassium 4.5 mmol/L (3.5-5.1); Sodium 135 mmol/L (135-145); eGFR > 60.00
--- NOTE | 2024-12-24 14:11 | W.PN.HOSP.TC ---
Today's Communication/Plan
-
decompression
cld
ctm
Assessment / Plan
Assessment / Plan
Physical Exam
General: Well Developed, Well Nourished and No Apparent Distress
HEENT: NormoCephalic, Moist mucous membranes and Atraumatic
Respiratory: Clear
Cardiac: S1/S2 and Regular Rhythm; No Murmur or Rub
GI: Soft, Non Tender, distended, rectal tube for decopression in place; No Organomegaly
Rectal: Deferred by Provider
Musculoskeletal: No Clubbing, No Cyanosis and No Edema
Skin: No Rash
Neuro: Nonfocal/grossly intact
Subacute partial sigmoid volvulus
- s/p sigmoidoscopy with successful complete decompression achieved and decompression tube placed 12/23/24.
- improved
-probably surgical intervention this week
-cardiac clearance for mediastinal shift and hx of afib, remote
-cld
-gi signed off
PACs - seen on tele.
- post sigmoidoscopy GI reported PACs with questionable Afib.
- cards consulted
-ntd at this chelle
Anxiety/depression - home meds.
DVT ppx
-lovenox
Anticipated Discharge: > 48 hours
Subjective/Interval History
-
Date of Service: December 24, 2024
decompression
Objective Data
-
Labs:
Laboratory Results
12/24/24
11:56
WBC 6.3
Hgb 12.9 L
Hct 39.5
Plt Count 158
Sodium 135
Potassium 4.5
Chloride 101
Carbon Dioxide 30
BUN 15
Creatinine 0.9
Glucose 123 H
Calcium 8.7
Vital Signs:
Vital Signs
Temp Pulse Resp BP Pulse Ox
98.2 F 58 16 168/69 97
12/24/24 11:54 12/24/24 11:54 12/24/24 11:54 12/24/24 11:54 12/24/24 11:54
I&O
12/23/24 12/24/24 12/25/24
06:59 06:59 06:59
Intake Total 1680 / 1680
Output Total 1650 / 1650
Balance
Review of Systems
-
History Source: Patient
All other systems: Not reviewed unless documented
Data Reviewed
-
Diagnostic Radiology: Report Reviewed by me
CT Scan: Report Reviewed by me
Labs: Labs Reviewed by me
[2024-12-24] MEDS: TYLENOL 1000 MG PO (15:42)
[2024-12-24 15:56] VITALS: BP 159/74
--- NOTE | 2024-12-24 16:28 | W.PN.CRS1 ---
Addendum entered and electronically signed by Nagi Wise MD 12/24/24 17:50:
I saw and examined the patient.
The PARTS CLASSIFIER's note was reviewed and I agree with the note.
Comment:
84-year-old male with PMH of anxiety/depression, kidney stones, remote history of A-fib, sigmoid volvulus s/p sigmoidectomy in 2004 who presents after 1 month of worsening constipation and bloating associated with straining and some dyspnea on
exertion, but continued bowel function daily without N/V. Outpatient workup by Dr. Barone revealed dilated distal colon up to 15 cm and pt was instructed to go to ED for evaluation. His last colonoscopy was 2009 which showed a rectal TA and
recommended to repeat in 4 years. In the ED, his WBC was 5.[address] scan showed a massively dilated sigmoid colon with the configuration of a possible sigmoid volvulus. However, there was no twisting of the mesentery or bird-beak sign, so
pseudoobstruction could not be ruled out. He underwent flexible sigmoidoscopy by Dr. Smallwood, who identified the previous colon anastomosis and identified a tapering in the lumen, concerning for sigmoid volvulus at about 35 cm. There was no evidence
of necrosis and the colon was decompressed. Decompression tube was left in place.
AFVSS, ABD soft, mildly distended with tympany (improved from yesterday), nontender, no R/G; rectal tube in place with minimal output
WBC 6.3, Hb 12.9, Cr 0.9
� Subacute partial sigmoid volvulus with massive distention of the sigmoid extending up to the splenic flexure with mass effect on the left chest and displacement of the mediastinum to the right
�S/p decompression with rectal tube in place; appreciate GI, now signed off
�Recommend sigmoidectomy this admission due to high risk of recurrence; reviewed risks/benefits of nonoperative versus operative management; patient agreeable with surgery; also discussed with son, who agreed as well
�Appreciate cardiology, no additional workup/optimization from cardiac standpoint prior to surgery
�OR likely Thursday, possibly Thursday; will decide on bowel prep depending on patient's course over the next 24 hours
�Continue rectal tube for decompression
� Continue clears, do not advance; okay for p.o. meds
� Continue DVT ppx
� Appreciate hospitalist
Original Note:
Today's Communication / Plan
-
OR thursday vs thursday, keep on clears until then
Assessment/Plan
-
84 yo male with h/o sigmoid volvulus s/p sigmoidectomy in 2004 now presenting with subacute partial distal/sigmoid colonic volvulus with massive distention and with mass effect on the left chest and displacement of the mediastinum to the right
PPD #1 decompression with rectal tube in place; xray in follow up with noted improvement in distention
AFVSS
Labs stable
High risk for recurrence without surgical intervention, patient and family agreeable to proceed
--Continue on clear liquids with rectal tube decompression
--Tentative OR resection of the remaining sigmoid colon thursday vs thursday pending OR availability
--Appreciate cardiology evaluation for clearance
--Medical management as per primary team
--Lovenox for VTE ppx
Subjective Data
Subjective Data
Date of Service: December 24, 2024
Patient seen and examined at bedside with Dr. Wise. Denies n/v. Denies pain but does have some tightness. Feels he is breathing better than on admission. Not passing flatus or stool around the rectal tube
Objective Data
-
Vital Signs
Temp Pulse Resp BP Pulse Ox
98.3 F 62 16 159/74 92
12/24/24 15:56 12/24/24 15:56 12/24/24 15:56 12/24/24 15:56 12/24/24 15:56
Intake & Output
12/23/24 12/24/24 12/25/24
06:59 06:59 06:59
Intake Total 1680 / 1680
Output Total 1650 / 1650
Balance 30 / 30
Intake:
Oral fluids 480 / 480
IV fluids (Total) 1200 / 1200
ns 100 / 100
Output:
Urine, Arora 1200 / 1200
Urine, Voided 450 / 450
Lab Results
12/24/24 11:56
12/24/24 11:56
Physical Exam
-
General: No Acute Distress
Abdomen: Soft, Distended, Non Tender and Other (rectal tube in place with some liquid stool in collection bag)
Skin: Warm and Dry
[2024-12-24] MEDS: LOVENOX 40 MG SC (18:46)
[2024-12-24 19:31] VITALS: BP 160/76
[2024-12-24 23:34] VITALS: BP 156/71
[2024-12-25] MEDS: NSS 1000 IV (01:26)
[2024-12-25 03:27] VITALS: BP 149/78
[2024-12-25 05:18] LABS: Hemoglobin 11.9 g/dL (13.0-18.0); Mean Corp Hgb Conc. 33.1 g/dL (33.0-37.0); Mean Corpuscular Hgb 31.2 pg (27.0-31.0); Mean Corpuscular Volume 94.2 fL (80.0-94.0); Mean Platelet Volume 10.1 fL (7.4-10.4); Platelet Count 140 10^3/uL (130-400); Red Blood Cell Count 3.82 10^6/uL (4.70-6.10); White Blood Cell Count 4.5 10^3/uL (4.8-10.8)
[2024-12-25 05:36] LABS: Blood Urea Nitrogen 12 mg/dl (9-20); Calcium 8.3 mg/dl (8.4-10.2); Carbon Dioxide 27 mmol/L (22-30); Chloride 104 mmol/L (98-107); Estimated Creatinine Clearance 77 ml/min; Glucose 92 mg/dl (70-99); Potassium 4.1 mmol/L (3.5-5.1); Sodium 135 mmol/L (135-145); eGFR > 60.00
[2024-12-25 07:56] VITALS: BP 165/81
[2024-12-25] MEDS: LEXAPRO 5 MG PO (08:25)
[2024-12-25] MEDS: ATIVAN 0.25 MG PO (08:26)
[2024-12-25 08:59] LABS: Albumin 2.9 g/dl (3.5-5.0)
[2024-12-25 09:22] LABS: Prealbumin (Transthyretin) 16.8 mg/dl (17.6-36.0)
[2024-12-25 11:29] VITALS: BP 171/76
--- NOTE | 2024-12-25 12:06 | W.PN.CRS1 ---
Addendum entered and electronically signed by Nagi Wise MD 12/25/24 15:02:
I saw and examined the patient.
The SENIOR PHP DEVELOPER's note was reviewed and I agree with the note.
Comment:
Passing some flatus, no stool around rectal tube. Denies abdominal pain, feeling well.
Abdomen soft, minimally to mildly distended, nontender
Continue clears with clear ensures; prealbumin 16.8, albumin 2.9, CRP slightly elevated at 11
Tentative plan for sigmoidectomy, possible colostomy for Thursday; will plan for gentle GoLytely prep starting tomorrow afternoon; cleared from cardiac standpoint
Will request ostomy marking tomorrow
Original Note:
Today's Communication / Plan
-
Tentative plan for OR Thursday
Assessment/Plan
-
84 yo male with h/o sigmoid volvulus s/p sigmoidectomy in 2004 now presenting with subacute partial distal/sigmoid colonic volvulus with massive distention and with mass effect on the left chest and displacement of the mediastinum to the right
PPD #2 decompression with rectal tube in place; xray in follow up with noted improvement in distention
Not passing stools as of yet, some liquid into rectal tube
AFVSS
Labs stable
High risk for recurrence without surgical intervention, patient and family agreeable to proceed. Appreciate cardiology evaluation for clearance
--Continue on clear liquids with supplements with rectal tube decompression
--Tentative OR resection of the remaining sigmoid colon Thursday pending OR availability
--Daily miralax
--Medical management as per primary team
--Lovenox for VTE ppx
Subjective Data
Subjective Data
Date of Service: December 25, 2024
Patient seen and examined at bedside with Dr. Wise. Denies n/v. Not passing stools around tube. Some flatus. Denies pain.
Objective Data
-
Vital Signs
Temp Pulse Resp BP Pulse Ox
97.5 F 66 16 171/76 94
12/25/24 11:29 12/25/24 11:29 12/25/24 11:29 12/25/24 11:29 12/25/24 11:29
Intake & Output
12/24/24 12/25/24 12/26/24
06:59 06:59 06:59
Intake Total 1680 / 1680 2420 / 2420
Output Total 1650 / 1650 1550 / 1550
Balance 870 / 870
Intake:
Oral fluids 480 / 480 1220 / 1220
IV fluids (Total) 1200 / 1200 1200 / 1200
ns 100 / 100
Output:
Urine, Arora 650 / 650
Urine, Voided 1650 / 1650 900 / 900
Lab Results
12/25/24 04:10
12/25/24 04:10
Physical Exam
-
General: No Acute Distress
Abdomen: Soft, Distended (mild and improved), Non Tender and Other (rectal tube in place with some liquid stool in collection bag)
Skin: Warm and Dry
--- NOTE | 2024-12-25 12:16 | W.PN.HOSP.TC ---
Today's Communication/Plan
-
CLD
Miralax
Start Lotrel
Assessment / Plan
Assessment / Plan
Physical Exam
General: Well Developed, Well Nourished and No Apparent Distress
HEENT: NormoCephalic, Moist mucous membranes and Atraumatic
Respiratory: Clear
Cardiac: S1/S2 and Regular Rhythm; No Murmur or Rub
GI: Soft, Non Tender, distended, rectal tube for decopression in place; No Organomegaly
Rectal: Deferred by Provider
Musculoskeletal: No Clubbing, No Cyanosis and No Edema
Skin: No Rash
Neuro: Nonfocal/grossly intact
Subacute partial sigmoid volvulus
- s/p sigmoidoscopy with successful complete decompression achieved and decompression tube placed 12/23/24.
- improved
-probably surgical intervention this week - probable thursday
-cardiac clearance for mediastinal shift and hx of afib, remote
-cld
-gi signed off
-miralax
PACs - seen on tele.
- post sigmoidoscopy GI reported PACs with questionable Afib.
- cards consulted
-ntd at this chelle
Essential Hypertension
-start Lotrel
Anxiety/depression - cont home meds.
DVT ppx
-lovenox
Anticipated Discharge: > 48 hours
Subjective/Interval History
-
Date of Service: December 25, 2024
No acute events, continue clear liquid diet
Objective Data
-
Labs:
Laboratory Results
12/25/24
04:10
WBC 4.5 L
Hgb 11.9 L
Hct 36.0 L
Plt Count 140
Sodium 135
Potassium 4.1
Chloride 104
Carbon Dioxide 27
BUN 12
Creatinine 0.9
Glucose 92
Calcium 8.3 L
Vital Signs:
Vital Signs
Temp Pulse Resp BP Pulse Ox
97.5 F 66 16 171/76 94
12/25/24 11:29 12/25/24 11:29 12/25/24 11:29 12/25/24 11:29 12/25/24 11:29
I&O
12/24/24 12/25/24 12/26/24
06:59 06:59 06:59
Intake Total 1680 / 1680 2420 / 2420
Output Total 1650 / 1650 1550 / 1550
Balance 870 / 870
Review of Systems
-
History Source: Patient
All other systems: Not reviewed unless documented
Data Reviewed
-
Diagnostic Radiology: Report Reviewed by me
CT Scan: Report Reviewed by me
Labs: Labs Reviewed by me
[2024-12-25] MEDS: LOTREL 5 MG/10 MG 1 CAPSULE PO (12:44)
[2024-12-25] MEDS: MIRALAX 17 GRAMS PO (12:45)
[2024-12-25 15:49] VITALS: BP 162/84
[2024-12-25] MEDS: LOVENOX 40 MG SC (18:00)
[2024-12-25 19:05] VITALS: BP 156/80
[2024-12-25 23:04] VITALS: BP 142/72
--- NOTE | 2024-12-26 02:49 | PTCARENOTE ---
Pt was standing at side of bed and rectal tube dislodged. Colorectal surgery beverage inspection machine tender notified. no new orders at this time.
[2024-12-26 03:41] VITALS: BP 151/66
[2024-12-26 05:31] LABS: Hematocrit 36.9 % (39.0-52.0); Hemoglobin 12.3 g/dL (13.0-18.0); Mean Corp Hgb Conc. 33.3 g/dL (33.0-37.0); Mean Corpuscular Hgb 31.2 pg (27.0-31.0); Mean Corpuscular Volume 93.7 fL (80.0-94.0); Mean Platelet Volume 9.8 fL (7.4-10.4); Platelet Count 154 10^3/uL (130-400); Red Blood Cell Count 3.94 10^6/uL (4.70-6.10); Red Cell Dist. Width 12.9 % (11.5-14.5); White Blood Cell Count 5.1 10^3/uL (4.8-10.8)
[2024-12-26 05:37] LABS: INR 1.01; PT 13.6 Sec (11.4-14.6)
[2024-12-26 05:38] LABS: APTT 27.9 Sec (23.4-35.0)
[2024-12-26 06:00] LABS: Blood Urea Nitrogen 12 mg/dl (9-20); Calcium 8.6 mg/dl (8.4-10.2); Carbon Dioxide 27 mmol/L (22-30); Chloride 103 mmol/L (98-107); Estimated Creatinine Clearance 77 ml/min; Glucose 89 mg/dl (70-99); Sodium 135 mmol/L (135-145); eGFR > 60.00
[2024-12-26 07:04] VITALS: BP 148/74
[2024-12-26] MEDS: MIRALAX 17 GRAMS PO (09:17)
[2024-12-26] MEDS: ATIVAN 0.25 MG PO (09:20)
[2024-12-26] MEDS: LEXAPRO 5 MG PO (09:20)
--- NOTE | 2024-12-26 10:32 | W.PN.CRS1 ---
Today's Communication / Plan
-
Continue clears
Start prep at 1 PM
N.p.o. at midnight
OR tomorrow
Assessment/Plan
-
84 yo male with h/o sigmoid volvulus s/p sigmoidectomy in 2004 now presenting with subacute partial distal/sigmoid colonic volvulus with massive distention and with mass effect on the left chest and displacement of the mediastinum to the right
PPD #3 decompression with rectal tube (now out)
Not passing stools yet but has flatus
AFVSS
Labs stable
High risk for recurrence without surgical intervention, patient and family agreeable to proceed. Appreciate cardiology evaluation for clearance
--Continue on clear liquids with supplements with rectal tube decompression
--OR resection of the remaining sigmoid colon Thursday pending OR availability
--Daily miralax
--Medical management as per primary team
--Lovenox for VTE ppx
--Start oral prep today at 1pm
--NPO at midnight
Subjective Data
Subjective Data
Date of Service: December 26, 2024
Patient states he feels 'gurgling' in his abdomen. He has not had a bowel movement yet but he does have some flatus. He states the rectal tube came out. He overall feels much improved.
Objective Data
-
Vital Signs
Temp Pulse Resp BP Pulse Ox
98.1 F 62 16 148/74 96
12/26/24 07:04 12/26/24 07:04 12/26/24 07:04 12/26/24 07:04 12/26/24 09:15
Intake & Output
12/25/24 12/26/24 12/27/24
06:59 06:59 06:59
Intake Total 2420 / 2420 1600 / 1600
Output Total 1550 / 1550 1960 / 1960
Balance 870 / 870 -360 / -360
Intake:
Oral fluids 1220 / 1220 900 / 900
IV fluids (Total) 1200 / 1200 700 / 700
IV piggybacks 0 / 0
Output:
Urine, Arora 650 / 650
Urine, Voided 900 / 900 1959 / 1959
Other:
Number of approximated MODERATE 1
amounts of urine
Lab Results
12/26/24 04:24
12/26/24 04:24
Physical Exam
-
General: No Acute Distress and AOx3
Abdomen: Soft, Non Distended and Non Tender
Skin: Warm and Dry
--- NOTE | 2024-12-26 10:45 | WOUNDNOTE ---
[facility] RN note: Patient stoma marked both sides per Lexy Matias's request. Stoma marked in upper quadrants avoiding skin creases. Lower quadrant not an option d/t small lower quadrant surface area and increase risk for pouch leakage. RUQ stoma teja
4.2cm to R of midline and 14cm above umbilical line. LUQ 4.6cm to L of midline and 12.3cm above umbilical line. Patient instructed surgeon makes the final decision with stoma placement and skin creases can occur with the surgery itself. Patient
lives alone.
[2024-12-26 11:35] VITALS: BP 160/77
[2024-12-26] MEDS: LOTREL 5 MG/10 MG 1 CAPSULE PO (11:40)
--- NOTE | 2024-12-26 12:17 | CM ---
Met with pt at bedside with son/daughter
Pt reports he lives alone in a split-level home ([address] [place] [id number])
Independent at baseline, retired, drives
DME - none
SNF/HH - no past hx
Has ride at discharge
PCP - [facility]
Pharm - [facility]
Requested son Jl as lathe operator contact lens - P - [phone]
For planned sx tomorrow. CM will cont to follow for discharge needs
Plan - anticipate home with VN when medically ready
[2024-12-26] MEDS: NULYTELY SOLUTION 2 LITERS PO (13:00)
[2024-12-26] MEDS: FLAGYL 1000 MG PO ×3 (14:17→23:45)
[2024-12-26] MEDS: NEOMYCIN 1000 MG PO ×3 (14:17→23:46)
--- NOTE | 2024-12-26 14:39 | W.PN.HOSP.TC ---
Today's Communication/Plan
-
Clear liquid diet.
Prep for sigmoid resection 12/27
Cardiac clearance
Assessment / Plan
Assessment / Plan
Subacute partial sigmoid volvulus
- s/p sigmoidoscopy with successful complete decompression achieved and decompression tube placed 12/23/24.
- improved
-Plan for sigmoid resection on 12/27
-cardiac clearance for mediastinal shift and hx of afib, remote
-cld
-gi signed off
-miralax
PACs - seen on tele.
- post sigmoidoscopy GI reported PACs with questionable Afib.
- cards consulted
-ntd at this chelle
Essential Hypertension
-start Lotrel
Anxiety/depression - cont home meds.
DVT ppx
-lovenox
Anticipated Discharge: > 48 hours
Subjective/Interval History
-
Date of Service: December 26, 2024
Objective Data
-
Labs:
Laboratory Results
12/26/24
04:24
WBC 5.1
Hgb 12.3 L
Hct 36.9 L
Plt Count 154
PT 13.6
INR 1.01
APTT 27.9
Sodium 135
Potassium 4.0
Chloride 103
Carbon Dioxide 27
BUN 12
Creatinine 0.9
Glucose 89
Calcium 8.6
Vital Signs:
Vital Signs
Temp Pulse Resp BP Pulse Ox
97.8 F 58 16 160/77 98
12/26/24 11:35 12/26/24 11:35 12/26/24 11:35 12/26/24 11:40 12/26/24 11:35
I&O
12/25/24 12/26/24 12/27/24
06:59 06:59 06:59
Intake Total 2420 / 2420 1600 / 1600
Output Total 1550 / 1550 1959 / 1959
Balance 870 / 870 -360 / -360
Physical Exam
-
General: Well Developed and No Apparent Distress
HEENT: Normocephalic, Atraumatic and Moist Mucous Membranes
Respiratory: Clear to Auscultation
Cardiac: Regular Rhythm and S1/S2; Negative Murmur, Rub or Gallop
GI: Soft, Nontender, Nondistended and Normal Bowel Sounds; Negative Organomegaly
Rectal: Deferred by Provider
Musculoskeletal: No Clubbing, No Cyanosis and No Edema
Skin: Negative Rash
Neuro: Nonfocal/Grossly Intact
[2024-12-26 14:52] VITALS: BMI 31.5
[2024-12-26 15:25] VITALS: BP 136/79
[2024-12-26 19:05] VITALS: BP 156/71
[2024-12-26 23:05] VITALS: BP 155/75
[2024-12-26] MEDS: NORMOSOL-R/PLASMALYTE-A 1000 IV (23:45)
[2024-12-27] VITALS (12 sets, daily range): BP systolic 103–152; BP diastolic 48–73
[2024-12-27 06:38] LABS: Hemoglobin 12.3 g/dL (13.0-18.0); Mean Corp Hgb Conc. 33.2 g/dL (33.0-37.0); Mean Corpuscular Hgb 31.1 pg (27.0-31.0); Mean Corpuscular Volume 93.4 fL (80.0-94.0); Mean Platelet Volume 10.2 fL (7.4-10.4); Platelet Count 165 10^3/uL (130-400); Red Blood Cell Count 3.96 10^6/uL (4.70-6.10); Red Cell Dist. Width 12.9 % (11.5-14.5); White Blood Cell Count 4.8 10^3/uL (4.8-10.8)
[2024-12-27 07:00] LABS: Blood Urea Nitrogen 11 mg/dl (9-20); Calcium 8.5 mg/dl (8.4-10.2); Carbon Dioxide 27 mmol/L (22-30); Chloride 102 mmol/L (98-107); Estimated Creatinine Clearance 77 ml/min; Glucose 89 mg/dl (70-99); Potassium 4.1 mmol/L (3.5-5.1); Sodium 136 mmol/L (135-145); eGFR > 60.00
--- NOTE | 2024-12-27 07:24 | W.PN.UPDATE ---
Update Note
Progress Note Update
DELAYED ENTRY OF THIS NOTE; this was documented yesterday (12/26/34) around 6pm
Patient seen and examined; he is doing well and tolerated the 2 L of GoLytely; he is passing liquid stool, although it is still brown
On exam, he is mildly distended (not significantly more distended than yesterday), soft and nontender
�Continue clears until midnight, then n.p.o.; surgery scheduled for noon/1pm
� Reassess in the a.m.; if not distended and stool still brown, can give another liter of GoLytely (but none after 10am); if more distended or yellow in color, no additional GoLytely
� Reviewed risks of surgery, including bleeding, infection, damage to nearby structures (i.e.�bowel, solid organ, ureter), risk of recurrence, anastomotic leak if anastomosis is created, need for ostomy and risks related to ostomies (i.e.�skin
irritation, hernia, retraction, prolapse, stenosis, poor perfusion) as well as anesthetic risks; patient understood well and all questions answered; patient still amenable to sigmoidectomy
[2024-12-27] MEDS: LEXAPRO 5 MG PO (10:17)
[2024-12-27] MEDS: ATIVAN 0.25 MG PO (10:17)
--- NOTE | 2024-12-27 10:57 | W.PN.CRS1 ---
Today's Communication / Plan
-
Surgery later today
Assessment/Plan
-
84 yo male with h/o sigmoid volvulus s/p sigmoidectomy in 2004 now presenting with subacute partial distal/sigmoid colonic volvulus with massive distention and with mass effect on the left chest and displacement of the mediastinum to the right
PPD # 4 decompression with rectal tube (now out)
Not passing stools yet but has flatus
AFVSS
Labs stable
High risk for recurrence without surgical intervention, patient and family agreeable to proceed. Appreciate cardiology evaluation for clearance
--N.p.o. for surgery
--OR resection of the remaining sigmoid colon scheduled for later this afternoon
--Medical management as per primary team
--Lovenox for VTE ppx-held for surgery today
--Appreciate wound RN
Subjective Data
Subjective Data
Date of Service: December 27, 2024
Patient states he had a few bowel movements and then had clear bowel movements this morning. He has no pain. He has no other complaints at this time.
Objective Data
-
Vital Signs
Temp Pulse Resp BP Pulse Ox
98.0 F 63 18 152/73 96
12/27/24 07:49 12/27/24 07:49 12/27/24 07:49 12/27/24 07:49 12/27/24 07:49
Intake & Output
12/26/24 12/27/24 12/28/24
06:59 06:59 06:59
Intake Total 1600 / 1600 3300 / 3300
Output Total 1959 650 / 650
Balance -360 / -360 1360 / 1360 -650 / -650
Intake:
Oral fluids 900 / 900 3300 / 3300
IV fluids (Total) 700 / 700
IV piggybacks 0 / 0
Output:
Urine, Voided 1959 650 / 650
Other:
Number of approximated MODERATE 1 1
amounts of urine
Lab Results
12/27/24 04:49
12/27/24 04:49
Physical Exam
-
General: No Acute Distress and AOx3
Abdomen: Soft, Non Distended and Non Tender
Skin: Warm and Dry
[2024-12-27] MEDS: LOTREL 5 MG/10 MG 1 CAPSULE PO (11:03)
[2024-12-27] MEDS: HEPARIN 5000 UNITS SC (12:47)
[2024-12-27] MEDS: TYLENOL 1000 MG PO (12:48)
[2024-12-27] MEDS: MIRALAX PO (12:57)
--- NOTE | 2024-12-27 13:28 | W.PN.HOSP.TC ---
Today's Communication/Plan
-
OR for partial sigmoidectomy today
Assessment / Plan
Assessment / Plan
Subacute partial sigmoid volvulus
- s/p sigmoidoscopy with successful complete decompression achieved and decompression tube placed 12/23/24.
- improved
-Plan for sigmoid resection on 12/27
-cardiac clearance for mediastinal shift and hx of afib, remote
-cld
-gi signed off
-miralax
PACs - seen on tele.
- post sigmoidoscopy GI reported PACs with questionable Afib.
- cards consulted
-ntd at this chelle
Essential Hypertension
-start Lotrel
Anxiety/depression - cont home meds.
DVT ppx
-lovenox
Anticipated Discharge: > 48 hours
Subjective/Interval History
-
Date of Service: December 27, 2024
Objective Data
-
Labs:
Laboratory Results
12/27/24
04:49
WBC 4.8
Hgb 12.3 L
Hct 37.0 L
Plt Count 165
Sodium 136
Potassium 4.1
Chloride 102
Carbon Dioxide 27
BUN 11
Creatinine 0.9
Glucose 89
Calcium 8.5
Vital Signs:
Vital Signs
Temp Pulse Resp BP Pulse Ox
98.0 F 63 18 152/73 96
12/27/24 07:49 12/27/24 07:49 12/27/24 07:49 12/27/24 07:49 12/27/24 07:49
I&O
12/26/24 12/27/24 12/28/24
06:59 06:59 06:59
Intake Total 1600 / 1600 3300 / 3300
Output Total 1959 / 1959 194 / 1939 650 / 650
Balance -360 / -360 1360 / 1360 -650 / -650
Physical Exam
-
General: Well Developed and No Apparent Distress
HEENT: Normocephalic, Atraumatic and Moist Mucous Membranes
Respiratory: Clear to Auscultation
Cardiac: Regular Rhythm and S1/S2; Negative Murmur, Rub or Gallop
GI: Soft, Nontender, Nondistended and Normal Bowel Sounds; Negative Organomegaly
Rectal: Deferred by Provider
Musculoskeletal: No Clubbing, No Cyanosis and No Edema
Skin: Negative Rash
Neuro: Nonfocal/Grossly Intact
--- NOTE | 2024-12-27 15:50 | CM ---
Chart reviewed and patient is for possible OR today.
Plan; To follow with patient progress for discharge planning needs.
--- NOTE | 2024-12-27 19:22 | W.IMMPOSTOP ---
Surgical Immed Post Op Note
-
Primary Surgeon: Nagi Wise MD
Assisting Surgeon: ATIF Francisco
Pre-op Diagnosis: Sigmoid volvulus
Post-op Diagnosis: Sigmoid volvulus
Procedure Performed: Exploratory laparotomy, lysis of adhesions, sigmoidectomy with EEA stapled anastomosis, flexible sigmoidoscopy; TAP block performed by anesthesia
Anesthesia Type: General
Specimen / Cultures: Sigmoid colon
Estimated Blood Loss: 100 mL
IVF: 2.5 L
UOP: 550 mL
Complications: None
Operative Findings: Massively distended sigmoid colon extending up to the proximal descending colon; omental band crossing just proximal to the rectosigmoid junction, causing a tapering of the diameter of the sigmoid but not causing a blockage;
prior anastomosis identified just proximal to the rectosigmoid junction; freed adhesions from the small bowel to the sigmoid and mesentery of the sigmoid; took down adhesions between the sigmoid that was looped on itself as well as the lateral
attachments up to the proximal descending colon; took down the omental attachments from the descending and sigmoid colon; identified the ureters bilaterally and kept safe; resected the sigmoid colon, stapling distally at the rectosigmoid junction
distal to the prior anastomosis at about 15 cm from the anal verge and proximally at the mid descending colon, which was a point where the descending colon tapered off into a more normal diameter; check for hemostasis which was assured; random bowel
from Tre[place] to Tre[place] and no bowel injury or ischemia was identified; performed EEA stapled anastomosis, negative leak test, donuts intact; bleeding noted at the staple line intraluminally and placed an endoscopic clip, which obtained hemostasis;
checked hemostasis once more which was assured; closed fascia with 0 PDS, placing Seprafilm under the fascial closure; close skin with intermittent audelia and Telfa hetal; Aquacel placed and anesthesia performed ultrasound-guided tap block
--- NOTE | 2024-12-27 19:38 | OR.RPT ---
Operative Report
Operative Report
DATE OF OPERATION: 12/27/2024
SURGEON: Nagi Wise MD
PREOPERATIVE DIAGNOSIS: Sigmoid volvulus
POSTOPERATIVE DIAGNOSIS: Sigmoid volvulus
OPERATION: Exploratory laparotomy, lysis of adhesions, sigmoidectomy, flexible sigmoidoscopy; ultrasound-guided TAP block by anesthesia
ASSISTANTS:
1. ATIF Francisco
ANESTHESIA: General
ESTIMATED BLOOD LOSS: 100 mL
UOP: 550 mL
IVF: 2.5 L
FINDINGS:
1. Massively dilated sigmoid; distention extending to the mid descending proximally and distally to the proximal rectum; omental band crossing the distal descending sigmoid, which was a transition point from massive distention to moderate
distention, but not causing an obstruction; prior anastomosis identified 2 to 3 cm proximal the rectosigmoid junction
2. Performed sigmoidectomy transecting at the rectosigmoid junction (distal to the prior anastomosis) and at the mid-descending colon (at the point which the massive distention and tapered into more normal diameter)
3. Performed EEA stapled anastomosis; donuts intact x 2, negative leak test; flexible sigmoidoscopy identified a point of bleeding, which was controlled with an endoscopic clip
SPECIMENS:
1. Sigmoid colon
DRAINS: None
COMPLICATIONS: No immediate complications.
INDICATIONS: The patient is an 84-year-old male who presented with recurrent sigmoid volvulus. The CT scan was read as most likely sigmoid volvulus, but the radiologist commented that the transition points were not as abrupt as usually seen with
volvulus. Dr. Smallwood with GI performed a flexible sigmoidoscopy to both diagnose if there was a twist or kink in the lumen of the sigmoid and to decompress. She described what appeared to be a volvulus, through which she was able to traverse and
decompress the colon. No ischemic mucosa noted. A rectal tube was placed and the patient did well. The risks and benefits of sigmoidectomy versus nonoperative measures were discussed in detail. Due to the high risk of recurrence, surgery was
recommended. The operation was discussed with the patient in detail, including risks, benefits and alternatives. My plan is to explore the abdomen and resect to the massively dilated portion of sigmoid colon. I would then evaluate the proximal and
distal ends to see if an anastomosis would be safe. If not, I would proceed with ostomy creation. Risks described included, but are not limited to, bleeding, infection, anastomotic leak/stenosis (if anastomosis created), ureteral injury, bowel or
solid organ injury, recurrence of volvulus, risks associated with a stoma if created (ie- skin irritation, ischemia, retraction, prolapse and parastomal hernia) and anesthetic risks. The patient understood and agreed to proceed.
PROCEDURE IN DETAIL: Pre-operatively, the patient was marked by our enterostomal nurses. The patient was taken to the operating room and placed on the operating table in supine position. Sequential compression devices were placed bilaterally.
General anesthesia was induced and the patient was intubated without complication. The patient was placed in lithotomy position with both arms secured to the armboards in extended position. Arora catheter was placed with sterile technique. The
abdomen was shaved, prepped and draped in a sterile fashion. A time-out was then performed verifying the correct patient, procedure, operative site, positioning, and special equipment. Anesthesia placed an orogastric tube. Preoperative antibiotics
were given. A marking pen was used to teja out the midline.
Using a 15 blade scalpel, a midline incision was made from 2 cm above the umbilicus and extended caudally to 2 cm above the pubic symphysis. This was taken down to the level of the fascia with Bovie electrocautery and hemostasis was assured. The
linea alba was divided carefully with Bovie electrocautery. 2 Kellys were used to grasp and elevate the peritoneum, which was sharply divided with Metzenbaum scissors, ensuring no peritoneal organs were in the vicinity. Upon entry, I encountered
minimal clear ascites and the distended sigmoid. No injury noted from entry. I extended the fascial incision to the length of the skin incision, taking care to avoid injury to the bladder. A large Adam wound protector was placed. The abdomen was
explored. The sigmoid colon was massively dilated, but there was no kink and no signs of ischemia or necrosis. The sigmoid looped up to the upper abdomen and then back down to the peritoneal attachments along the left gutter. The distention of
the sigmoid was noted to continue up toward the mid to proximal descending. The distal distention was noted to extend into the rectum. However, there was a tapering of distention at the distal sigmoid colon associated with an omental band. There
was no obstruction or ischemia associated with this crossing band and it was clear that this was not the cause of a blockage. Most likely, the colon was chronically massively distended and had twisted causing a partial obstruction, leading to his
subacute presentation. The Bookwalter was set up with 4 points of retraction. The patient was placed in Trendelenburg position with the left side tilted up. There were attachments from the small bowel to the sigmoid colon and mesentery of the
sigmoid colon. These were lysed meticulously to avoid injury to the bowel or mesentery. The proximal rectum had attachments to the pelvic inlet. The proximal rectum was dilated to nearly the entire pelvic inlet. Using blunt dissection, the
proximal rectum was freed down to the anterior reflection. There were adhesions from the sigmoid to the left lower quadrant, which were taken down. The omental band crossing the distal sigmoid colon was divided with the Voyant LigaSure. The small
bowel was then swept out of the pelvis. There were dense adhesions between the 2 loops of sigmoid, which I freed in order to improve mobilization. I freed omental attachments from the sigmoid and additional small bowel attachments to the mesentery
of the sigmoid. There was some violation of the peritoneum of the sigmoid colon mesentery, but no injury to the mesenteric vessels. I took down the lateral attachments of the sigmoid and descending colon. The adhesions to the omentum were quite
dense, making this portion of the operation difficult. I extended the midline incision several centimeters cephalad to improve visualization. The Adam wound protector was too small and therefore removed at this point. I had mobilized enough of
the sigmoid colon in order to identify the bilateral ureters and to select my transection points. The previous anastomosis from his previous sigmoidectomy was about 2 to 3 cm proximal to the rectosigmoid junction. This was also significantly
dilated and not strictured. I selected a point just distal to the rectosigmoid junction and created a hole in the mesentery. I divided the proximal rectum with a green load of the contour stapler. Likewise, there was a significant tapering of the
mid/distal descending colon, which would serve well as my proximal transection point. I created a hole in the mesentery and stapled and divided with a green load of the contour stapler. I elevated the sigmoid and ensured the mesentery was free
from the retroperitoneum. I ligated the mesentery with the Voyant LigaSure, staying close to the bowel wall. The sigmoid colon was then passed off as specimen. I evaluated the cut edge of the mesentery and hemostasis was assured.
At this point, I debated whether to create a primary anastomosis as opposed to an end colostomy. Although the remaining descending colon was slightly distended, this was within the range of normal and appeared healthy. I performed a flexible
sigmoidoscopy. The rectum was dilated, but decompressed easily to a normal diameter. There was some liquid stool within the rectum, which was irrigated and suctioned. The mucosa was healthy up to the staple line. Although there may be a
component of pelvic floor dysfunction leading to obstructive defecation and chronic constipation, there is significant morbidity with an end colostomy, which, at his age, has a higher likelihood of being a permanent colostomy. Weighing the risks
and benefits of each option, I proceeded with a primary anastomosis.
First, I ran the bowel from the ligament of Treitz to the ligament of Treves. There was no bowel injury or evidence of ischemia. Next, I checked my reach of the descending colon. It was a little tight. Therefore, I freed up the proximal
descending colon from the omentum and lateral attachments. I checked my reach once more and it was plenty adequate. I did not need to take down the splenic flexure. I placed blue towels to protect to the operative field. I resected the staple
line of the descending colon with electrocautery. I ran a 2�0 pursestring Prolene along the edge of the colon in a Douds fashion and tightened this down around the anvil post. The anvil staple line was cleared of mesentery and no diverticula
were intervening. The blue towels and dirty instruments were passed off and gloves were changed. The abdomen was irrigated with 1 L of warm saline. I passed the EEA sizers to ensure adequate diameter and length, and a easily arrived to the
proximal rectum staple line. The 31 mm EEA stapler was passed transanally and the pin was extended at the midportion of the staple line. The medical research assistant, Edin, attached the anvil to the pin. After ensuring no tension and no twist of the
mesentery, the EEA stapler was closed for an minute and fired. The EEA stapler was removed. The donuts were intact x 2. A leak test was performed by occluding the proximal lumen and insufflating with the flexible sigmoidoscopy. No bubbling was
noted. The anastomosis was then evaluated on flexible sigmoidoscopy. There was a significant ooze noted at 1 point along the staple line. An endoscopic clip was placed at this point and hemostasis was achieved. The colorectum was desufflated and
the sigmoidoscope removed.
The operative field was checked once more and hemostasis was assured. Seprafilm was placed just below the midline incision. The midline fascia was closed with a running 0 PDS, starting at the corners and ending in the middle. The skin was closed
with widely-gapped audelia and Telfa hetal and, ultimately, an Aquacel dressing was placed. Anesthesia performed an ultrasound-guided TAP block bilaterally. At this point, the procedure was complete. The patient was awoken and extubated without
complication. All needle, sponge and instrument counts were reported as correct. The patient tolerated the procedure well and was transferred to the recovery room in stable condition with Arora in place.
Of note, ATIF Francisco, medical research assistant, was necessary during this procedure for traction, countertraction, and exploratory purposes. I was present for the entire duration of the case.
DICTATED BY: Nagi Wise MD
[2024-12-27] MEDS: TORADOL 15 MG IV (20:06)
[2024-12-27] MEDS: ZOFRAN 4 MG IV (20:14)
[2024-12-27] MEDS: NORMOSOL-R/PLASMALYTE-A IV (20:20)
--- NOTE | 2024-12-27 21:20 | PTCARENOTE ---
Pt. received from PACU, drowsy but arousable to verbal stimuli but unable to stay awake for long periods of time. Surgical site checked with PACU nurse at the bedside. VSS but O2 low on RA, placed on 2L NC and stabilized at 96% 2L. Bed locked and in
lowest position, side rails in place, call light within reach.
[2024-12-27] MEDS: TYLENOL PO (23:33)
[2024-12-28] VITALS (10 sets, daily range): BP systolic 101–130; BP diastolic 52–63; O2SAT 97
[2024-12-28] MEDS: NORMOSOL-R/PLASMALYTE-A 1000 IV (00:10)
[2024-12-28] MEDS: TORADOL 15 MG IV ×4 (02:09→20:10)
[2024-12-28] MEDS: TYLENOL PO (06:27)
[2024-12-28 06:51] LABS: % Basophils 0.1 % (0-2); % Immature Granulocytes 0.4 % (0-0.5); % Lymphocytes 2.3 % (20.5-51.1); % Monocytes 5.8 % (1.7-9.3); % Neutrophils 91.4 % (42.2-75.2); Absolute Immature Granulocytes 0.1 10^3/uL (0-0.05); Absolute Lymphocytes 0.3 10^3/uL (1.2-3.4); Absolute Monocytes 0.7 10^3/uL (0.1-0.6); Absolute Neutrophils 10.3 10^3/uL (1.4-6.5); Hematocrit 40.4 % (39.0-52.0); Hemoglobin 13.7 g/dL (13.0-18.0); Mean Corp Hgb Conc. 33.9 g/dL (33.0-37.0); Mean Corpuscular Hgb 31.8 pg (27.0-31.0); Mean Corpuscular Volume 93.7 fL (80.0-94.0); Mean Platelet Volume 10.3 fL (7.4-10.4); Nucleated Red Blood Cells % 0 % (-); Platelet Count 184 10^3/uL (130-400); Red Blood Cell Count 4.31 10^6/uL (4.70-6.10); Red Cell Dist. Width 13.2 % (11.5-14.5); White Blood Cell Count 11.3 10^3/uL (4.8-10.8)
[2024-12-28 07:14] LABS: Blood Urea Nitrogen 17 mg/dl (9-20); Calcium 8.1 mg/dl (8.4-10.2); Carbon Dioxide 26 mmol/L (22-30); Chloride 101 mmol/L (98-107); Estimated Creatinine Clearance 70 ml/min; Glucose 126 mg/dl (70-99); Potassium 4.3 mmol/L (3.5-5.1); Sodium 134 mmol/L (135-145); eGFR > 60.00
[2024-12-28] MEDS: ATIVAN 0.25 MG PO (08:48)
[2024-12-28] MEDS: LOTREL 5 MG/10 MG 1 CAPSULE PO (08:48)
[2024-12-28] MEDS: LEXAPRO 5 MG PO (08:48)
[2024-12-28] MEDS: ENTEREG 12 MG PO ×2 (08:48→20:10)
--- NOTE | 2024-12-28 09:43 | W.PN.CRS1 ---
Today's Communication / Plan
-
Continue on clears
Lovenox
Out of bed
Assessment/Plan
-
PPD # 5 decompression with rectal tube (now out)
POD#1 Exploratory laparotomy, lysis of adhesions, sigmoidectomy with EEA stapled anastomosis, flexible sigmoidoscopy; TAP block performed by anesthesia
hgb: 13.7, WBC 11.3
Vitals normal
-Continue on clear liquid diet and await further bowel function
-Discontinue Arora
-Lovenox for DVT prophylaxis to start tonight
-Incentive spirometry every 1 hours while awake
-Will plan on changing dressing tomorrow
-OR pathology pending
-Out of bed with physical therapy
-DC IV fluids when tolerating diet
-Pain control: Tylenol and Toradol standing, Dilaudid as needed
Subjective Data
Procedure
12/27/24- Exploratory laparotomy, lysis of adhesions, sigmoidectomy with EEA stapled anastomosis, flexible sigmoidoscopy; TAP block performed by anesthesia
Subjective Data
Date of Service: December 28, 2024
Patient states he feels great. He is not in that much pain. He is not that bloated. He denies nausea or vomiting. He has not had any bowel movements or gas just yet.
Objective Data
-
Vital Signs
Temp Pulse Resp BP Pulse Ox
98.2 F 74 16 123/54 95
12/28/24 07:47 12/28/24 07:47 12/28/24 07:47 12/28/24 07:47 12/28/24 07:47
Intake & Output
12/27/24 12/28/24 12/29/24
06:59 06:59 06:59
Intake Total 3300 / 3300 750 / 750
Output Total 1940 / 1940 1000 / 1000
Balance 1360 / 1360 -250 / -250
Intake:
Oral fluids 3300 / 3300
IV fluids (Total) 750 / 750
Output:
Urine, Arora 350 / 350
Urine, Voided 1939 / 1939 650 / 650
Other:
Number of approximated MODERATE 1
amounts of urine
Lab Results
12/28/24 04:30
12/28/24 04:30
Physical Exam
-
General: No Acute Distress and AOx3
Abdomen: Soft, Distended (mild) and Non Tender
Wound: Dressing in Place
--- NOTE | 2024-12-28 11:23 | CM ---
CM following re: discharge planning.
Reviewed pt's chart, met with pt. Pt's daughter and pt's son at bedside.
Pt is POD 1 exploratory laparotomy, sigmoidectomy with EEA anastomosis. Pt reports he is doing well.
Pt expressed his desire to have [facility] services at discharge and he preferred [facility]. A referral to [facility] made.
Pt reports he lives alone and was independent in all areas [employer]IC TE[employer]. pt's daughter stated she and her brother live nearby and will be staying with the pt upon the discharge to help with recovery.
PT evaluation pending.
IMM reviewed, placed on chart, pt has a copy.
D/C plan: home with [facility] and family support. Family to transport at discharge.
CM will follow with discharge plan updates as hospitalization progresses
--- NOTE | 2024-12-28 12:03 | W.PN.HOSP.TC ---
Today's Communication/Plan
-
Postoperative care as per surgery.
Clears.
Arora out.
Back to Lovenox for DVT prophylaxis.
Continue telemetry monitoring
Assessment / Plan
Assessment / Plan
Subacute partial sigmoid volvulus
- s/p sigmoidoscopy with successful complete decompression achieved and decompression tube placed 12/23/24.
- improved
-Status post exploratory laparotomy, sigmoidectomy with EEA anastomosis.
Postoperative care as per colorectal surgery
PACs - seen on tele.
- post sigmoidoscopy GI reported PACs with questionable Afib.
- cards consulted
-ntd at this chelle
Essential Hypertension
-start Lotrel
Anxiety/depression - cont home meds.
DVT ppx
-lovenox
Anticipated Discharge: 24 - 48 hours
Subjective/Interval History
-
Date of Service: December 28, 2024
Objective Data
-
Labs:
Laboratory Results
12/28/24
04:30
WBC 11.3 H
Hgb 13.7
Hct 40.4
Plt Count 184
Sodium 134 L
Potassium 4.3
Chloride 101
Carbon Dioxide 26
BUN 17
Creatinine 1.0
Glucose 126 H
Calcium 8.1 L
Vital Signs:
Vital Signs
Temp Pulse Resp BP Pulse Ox
97.5 F 75 18 123/59 96
12/28/24 11:00 12/28/24 11:00 12/28/24 11:00 12/28/24 11:00 12/28/24 11:00
I&O
12/27/24 12/28/24 12/29/24
06:59 06:59 06:59
Intake Total 3300 / 3300 750 / 750
Output Total 1940 / 1940 1000 / 1000
Balance 1360 / 1360 -250 / -250
Physical Exam
-
General: Well Developed and No Apparent Distress
HEENT: Normocephalic, Atraumatic and Moist Mucous Membranes
Respiratory: Clear to Auscultation
Cardiac: Regular Rhythm and S1/S2; Negative Murmur, Rub or Gallop
GI: Soft, Nontender, Nondistended and Normal Bowel Sounds; Negative Organomegaly
Rectal: Deferred by Provider
Musculoskeletal: No Clubbing, No Cyanosis and No Edema
Skin: Negative Rash
Neuro: Nonfocal/Grossly Intact
[2024-12-28] MEDS: TYLENOL 1000 MG PO ×2 (12:18→17:29)
--- NOTE | 2024-12-28 13:02 | VNURNOTE ---
Security Management Specialist met with patient to discuss [facility] nurse/therapy, visits, schedule and homebound status. Patient is agreeable and understands that visits at home will be 2-3 x per week to assess and teach medical management.
[facility] brochure provided with contact information. Patient is aware that [facility] will contact them for start of care in 1-2 days after discharge from .
[facility] referral completed in [facility].
Patient requesting walker at [place]. Requested script be left on his chart by dr. Mejia and therapy to provide one at [facility].
[2024-12-28] MEDS: LOVENOX 40 MG SC (17:26)
[2024-12-29] MEDS: TYLENOL 1000 MG PO ×4 (01:00→17:47)
[2024-12-29] MEDS: TORADOL 15 MG IV ×4 (01:01→19:59)
[2024-12-29 03:17] VITALS: BP 112/55
[2024-12-29 05:44] LABS: Hematocrit 36.4 % (39.0-52.0); Hemoglobin 12.2 g/dL (13.0-18.0); Mean Corp Hgb Conc. 33.5 g/dL (33.0-37.0); Mean Corpuscular Hgb 31.4 pg (27.0-31.0); Mean Corpuscular Volume 93.6 fL (80.0-94.0); Mean Platelet Volume 10.1 fL (7.4-10.4); Platelet Count 162 10^3/uL (130-400); Red Blood Cell Count 3.89 10^6/uL (4.70-6.10); Red Cell Dist. Width 13.5 % (11.5-14.5); White Blood Cell Count 9.2 10^3/uL (4.8-10.8)
[2024-12-29 06:00] VITALS: BMI 31.4
[2024-12-29 07:03] VITALS: BP 125/57
[2024-12-29] MEDS: LEXAPRO 5 MG PO (07:41)
[2024-12-29] MEDS: ENTEREG 12 MG PO ×2 (07:41→19:59)
[2024-12-29] MEDS: ATIVAN 0.25 MG PO (07:43)
--- NOTE | 2024-12-29 09:02 | W.PN.CRS1 ---
Today's Communication / Plan
-
full liquids
d/c ivfs
post void residual
Assessment/Plan
-
PPD #6 decompression with rectal tube (now out)
POD#2 Exploratory laparotomy, lysis of adhesions, sigmoidectomy with EEA stapled anastomosis, flexible sigmoidoscopy; TAP block performed by anesthesia
hgb: 12.2 (13.7), WBC 9.2 (11.3)
Vitals normal
-Advance to full liquids
-Post void residual after next urination
-Lovenox for DVT prophylaxis to start tonight
-Incentive spirometry every 1 hours while awake
-Dressing changed at bedside, hetal in place (will remove prior to discharge)
-OR pathology pending
-Out of bed with physical therapy
-DC IV fluids when tolerating diet
-Pain control: Tylenol and Toradol standing, Dilaudid as needed
Subjective Data
Procedure
12/27/24- Exploratory laparotomy, lysis of adhesions, sigmoidectomy with EEA stapled anastomosis, flexible sigmoidoscopy; TAP block performed by anesthesia
Subjective Data
Date of Service: December 29, 2024
Patient states he is 'not too bad'. He is having trouble passing urine. He is hungry. He has gas but no bowel movements yet. He denies nausea or vomiting. His pain is controlled.
Objective Data
-
Vital Signs
Temp Pulse Resp BP Pulse Ox
97.7 F 68 17 125/57 98
12/29/24 07:03 12/29/24 07:03 12/29/24 07:03 12/29/24 07:03 12/29/24 07:03
Intake & Output
12/28/24 12/29/24 12/30/24
06:59 06:59 06:59
Intake Total 750 / 750 1800 / 1800
Output Total 1000 / 1000
Balance -250 / -250 1800 / 1800
Intake:
Oral fluids 1200 / 1200
IV fluids (Total) 750 / 750 600 / 600
Output:
Urine, Arora 350 / 350
Urine, Voided 650 / 650
Lab Results
12/29/24 04:49
12/28/24 04:30
Physical Exam
-
General: No Acute Distress and AOx3
Abdomen: Soft, Non Distended and Non Tender
Skin: Warm and Dry
Wound: Dressing Changed (hetal in place, old blood present)
[2024-12-29 11:31] VITALS: BP 138/64
[2024-12-29] MEDS: NORVASC 5 MG PO (12:36)
[2024-12-29] MEDS: ZESTRIL 10 MG PO (12:36)
--- NOTE | 2024-12-29 14:14 | CM ---
Chart reviewed
Advanced to full liquids
[facility] to follow when d/c'ed
Plan - home with [facility]
[2024-12-29 15:00] VITALS: BP 123/65
--- NOTE | 2024-12-29 16:42 | W.PN.HOSP.TC ---
Today's Communication/Plan
-
Full liquid diet
Arora is out, monitor for retention
Physical therapy
Assessment / Plan
Assessment / Plan
Subacute partial sigmoid volvulus
- s/p sigmoidoscopy with successful complete decompression achieved and decompression tube placed 12/23/24.
- improved
-Status post exploratory laparotomy, sigmoidectomy with EEA anastomosis.
Postoperative care as per colorectal surgery
PACs - seen on tele.
- post sigmoidoscopy GI reported PACs with questionable Afib.
- cards consulted
-ntd at this chelle
Essential Hypertension
-start Lotrel
Anxiety/depression - cont home meds.
DVT ppx
-lovenox
Anticipated Discharge: 24 - 48 hours
Subjective/Interval History
-
Date of Service: December 29, 2024
Objective Data
-
Labs:
Laboratory Results
12/29/24
04:49
WBC 9.2
Hgb 12.2 L
Hct 36.4 L
Plt Count 162
Vital Signs:
Vital Signs
Temp Pulse Resp BP Pulse Ox
97.6 F 88 17 123/65 98
12/29/24 15:00 12/29/24 15:00 12/29/24 15:00 12/29/24 15:00 12/29/24 15:00
I&O
12/28/24 12/29/24 12/30/24
06:59 06:59 06:59
Intake Total 750 / 750 1800 / 1800
Output Total 1000 / 1000
Balance -250 / -250 1800 / 1800
Physical Exam
-
General: Well Developed and No Apparent Distress
HEENT: Normocephalic, Atraumatic and Moist Mucous Membranes
Respiratory: Clear to Auscultation
Cardiac: Regular Rhythm and S1/S2; Negative Murmur, Rub or Gallop
GI: Soft, Nontender, Nondistended and Normal Bowel Sounds; Negative Organomegaly
Rectal: Deferred by Provider
Musculoskeletal: No Clubbing, No Cyanosis and No Edema
Skin: Negative Rash
Neuro: Nonfocal/Grossly Intact
[2024-12-29] MEDS: LOVENOX 40 MG SC (17:47)
[2024-12-29 23:40] VITALS: BP 144/63
[2024-12-30] MEDS: TYLENOL 1000 MG PO ×4 (00:55→17:07)
[2024-12-30] MEDS: TORADOL 15 MG IV ×4 (01:13→19:44)
[2024-12-30 06:00] VITALS: BMI 30.7
[2024-12-30 07:10] VITALS: BP 142/72
[2024-12-30] MEDS: NORVASC 5 MG PO (08:47)
[2024-12-30] MEDS: ATIVAN 0.25 MG PO (08:47)
[2024-12-30] MEDS: ZESTRIL 10 MG PO (08:48)
[2024-12-30] MEDS: ENTEREG 12 MG PO ×2 (08:48→19:44)
[2024-12-30] MEDS: LEXAPRO 5 MG PO (08:48)
--- NOTE | 2024-12-30 09:53 | W.PN.CRS1 ---
Today's Communication / Plan
-
Low residue diet
Remove hetal prior to discharge
Assessment/Plan
-
PPD # 7 decompression with rectal tube (now out)
POD# 3 exploratory laparotomy, lysis of adhesions, sigmoidectomy with EEA stapled anastomosis, flexible sigmoidoscopy; TAP block performed by anesthesia
No labs today
Vitals normal
-Advance to low residue
-Lovenox for DVT prophylaxis, teds and SCDs in place
-Incentive spirometry every 1 hours while awake
-Dressing changed at bedside, hetal in place (will remove prior to discharge)
-OR pathology pending
-Out of bed with physical therapy
-Pain control: Tylenol and Toradol standing, Dilaudid as needed
Subjective Data
Procedure
12/27/24- Exploratory laparotomy, lysis of adhesions, sigmoidectomy with EEA stapled anastomosis, flexible sigmoidoscopy; TAP block performed by anesthesia
Subjective Data
Date of Service: December 30, 2024
Patient states he feels well today. He has no nausea or vomiting. He has virtually no pain. He has not had any bowel movements or gas just yet. He does feel 'rumbling'.
Objective Data
-
Vital Signs
Temp Pulse Resp BP Pulse Ox
97.6 F 73 16 142/72 95
12/30/24 07:10 12/30/24 07:10 12/30/24 07:10 12/30/24 07:10 12/30/24 07:10
Intake & Output
12/29/24 12/30/24 12/31/24
06:59 06:59 06:59
Intake Total 1800 / 1800 1140 / 1140
Output Total 1400 / 1400
Balance 1800 / 1800 -260 / -260
Intake:
Oral fluids 1200 / 1200 1140 / 1140
IV fluids (Total) 600 / 600
Output:
Urine, Voided 1400 / 1400
Other:
Number of approximated MODERATE 2
amounts of urine
Lab Results
12/29/24 04:49
12/28/24 04:30
Physical Exam
-
General: No Acute Distress and AOx3
Abdomen: Soft, Non Distended and Non Tender
Skin: Warm and Dry
Incision: Clear, Dry, Intact
--- NOTE | 2024-12-30 12:11 | PTCARENOTE ---
Patient OOb to bathroom with supervision. Patient has no c/o pain. Patient tolerated 100% of Full liquids and is sitting in chair at present.
--- NOTE | 2024-12-30 14:13 | W.PN.HOSP.TC ---
Today's Communication/Plan
-
Low residue diet and monitor for tolerance.
Monitor for retention.
Increase activity
Assessment / Plan
Assessment / Plan
Subacute partial sigmoid volvulus
- s/p sigmoidoscopy with successful complete decompression achieved and decompression tube placed 12/23/24.
- improved
-Status post exploratory laparotomy, sigmoidectomy with EEA anastomosis.
Postoperative care as per colorectal surgery
Diet have been advanced to low residual on 12/30
PACs - seen on tele.
- post sigmoidoscopy GI reported PACs with questionable Afib.
- cards consulted
-ntd at this chelle
Essential Hypertension
-start Lotrel
Anxiety/depression - cont home meds.
DVT ppx
-lovenox
Anticipated Discharge: 24 - 48 hours
Subjective/Interval History
-
Date of Service: December 30, 2024
Objective Data
-
Vital Signs:
Vital Signs
Temp Pulse Resp BP Pulse Ox
97.6 F 73 16 142/72 95
12/30/24 07:10 12/30/24 07:10 12/30/24 07:10 12/30/24 07:10 12/30/24 07:10
I&O
12/29/24 12/30/24 12/31/24
06:59 06:59 06:59
Intake Total 1800 / 1800 1140 / 1140
Output Total 1400 / 1400
Balance 1800 / 1800 -260 / -260
Physical Exam
-
General: Well Developed and No Apparent Distress
HEENT: Normocephalic, Atraumatic and Moist Mucous Membranes
Respiratory: Clear to Auscultation
Cardiac: Regular Rhythm and S1/S2; Negative Murmur, Rub or Gallop
GI: Soft, Nontender, Nondistended and Normal Bowel Sounds; Negative Organomegaly
Rectal: Deferred by Provider
Musculoskeletal: No Clubbing, No Cyanosis and No Edema
Skin: Negative Rash
Neuro: Nonfocal/Grossly Intact
--- NOTE | 2024-12-30 14:17 | CM ---
Chart reviewed and met with pt/family
Low residue diet - monitoring for tolerance
Monitoring for retention
[facility] to follow at discharge - will need rolling walker - PT aware
Plan - anticipate home with [facility]
[2024-12-30 15:05] VITALS: BP 135/64
[2024-12-30] MEDS: LOVENOX 40 MG SC (17:08)
[2024-12-30 23:45] VITALS: BP 158/73
[2024-12-31] MEDS: TYLENOL 1000 MG PO ×2 (00:01→06:12)
[2024-12-31] MEDS: TORADOL 15 MG IV (01:25)
[2024-12-31 06:00] VITALS: BMI 30.8
--- NOTE | 2024-12-31 07:21 | W.PN.HOSP.TC ---
Today's Communication/Plan
-
Discharge today
Assessment / Plan
Assessment / Plan
Physical Exam
General: No Apparent Distress
HEENT: Normocephalic
Respiratory: Clear to Auscultation Bilaterally
Cardiac: Regular Rhythm and S1/S2
GI: Soft, Nontender, Nondistended and Normal Bowel Sounds.
Musculoskeletal: No Cyanosis and No Edema
Skin: Warm. Dry.
Neuro: AAOx3. Nonfocal/Grossly Intact
Assessment/Plan
Subacute partial sigmoid volvulus
- s/p sigmoidoscopy with successful complete decompression achieved and decompression tube placed 12/23/24.
- improved
-Status post exploratory laparotomy, sigmoidectomy with EEA anastomosis.
Postoperative care as per colorectal surgery
Diet have been advanced to low residual on 12/30/24 -- patient is tolerating it well
-Continue LRD
-Incentive spirometry every 1 hours while awake
-Surgery team reviewed dressing changes with patient
-OR pathology will need outpatient follow-up
-OOB/Ambulate
-Pain control: Tylenol standing, can use OTC NSAIDs, patient has not needed oxycodone
PACs - seen on tele.
- post sigmoidoscopy GI reported PACs with questionable Afib.
- cards consulted
-ntd at this chelle
Essential Hypertension
-start Lotrel
Anxiety/depression - cont home meds.
DVT ppx
-lovenox
More than 30 minutes spent in discharge including
Final examination of the patient
Summarizing hospital stay
Instructions for continuing care to all relevant caregivers
Preparation of discharge records, prescriptions, and referral forms
Total time spent (in minutes): 37
Anticipated Discharge: Today
Subjective/Interval History
-
Date of Service: December 31, 2024
Patient was seen and examined. He denied any complaints, he was eating his breakfast well. Patient passed a good amount of stool today.
Objective Data
-
Vital Signs:
Vital Signs
Temp Pulse Resp BP Pulse Ox
98.4 F 71 18 158/73 97
12/30/24 23:45 12/30/24 23:45 12/30/24 23:45 12/30/24 23:45 12/30/24 23:45
I&O
12/30/24 12/31/24 01/01/25
06:59 06:59 06:59
Intake Total 1140 / 1140 1200 / 1200
Output Total 1400 / 1400 1375 / 1375
Balance -260 / -260 -175 / -175
[2024-12-31] MEDS: ENTEREG 12 MG PO (08:11)
[2024-12-31] MEDS: ATIVAN 0.25 MG PO (08:11)
[2024-12-31] MEDS: NORVASC 5 MG PO (08:11)
[2024-12-31] MEDS: LEXAPRO 5 MG PO (08:11)
[2024-12-31] MEDS: TORADOL IV ×2 (08:12→15:08)
[2024-12-31] MEDS: ZESTRIL 10 MG PO (08:12)
[2024-12-31 08:19] VITALS: BP 149/73
--- NOTE | 2024-12-31 08:29 | W.PN.GS2 ---
Addendum entered and electronically signed by Jimi Castro MD 12/31/24 08:57:
Patient seen and examined. Agree with assessment plan as documented below.
Original Note:
Today's Communication / Plan
-
Dispo planning
Assessment / Plan
-
84 yo male with h/o sigmoid volvulus s/p sigmoidectomy in 2004 now presenting with subacute partial distal/sigmoid colonic volvulus with massive distention and with mass effect on the left chest and displacement of the mediastinum to the right
PPD # 8 decompression with rectal tube (now out)
POD# 4 exploratory laparotomy, lysis of adhesions, sigmoidectomy with EEA stapled anastomosis, flexible sigmoidoscopy; TAP block performed by anesthesia
AFVSS
Passing stools/flatus. Tolerating LRD
Ekaterina removed at bedside
-Continue LRD
-Lovenox for DVT prophylaxis, teds and SCDs in place
-Incentive spirometry every 1 hours while awake
-Dressing changes reviewed with patient
-OR pathology pending
-OOB/Ambulate
-Pain control: Tylenol and Toradol standing, oxycodone as needed
Ok to d/c from surgical standpoint
Subjective Data
-
Date of Service: December 31, 2024
Patient seen and examined at bedside with Dr. Castro. Denies nausea and vomiting. Passed a large stool with flatus today. Tolerating diet. Denies pain.
Objective Data
-
Intake and Output
12/30/24 12/31/24 01/01/25
06:59 06:59 06:59
Intake Total 1140 / 1140 1200 / 1200
Output Total 1400 / 1400 1375 / 1375
Balance -260 / -260 -175 / -175
Intake:
Oral fluids 1140 / 1140 1200 / 1200
Output:
Urine, Voided 1400 / 1400 1375 / 1375
Other:
Number of approximated SMALL 1
amounts of urine
Number of approximated MODERATE 2 4
amounts of urine
Vital Signs
Temp Pulse Resp BP Pulse Ox
97.9 F 67 16 149/73 96
12/31/24 08:19 12/31/24 08:19 12/31/24 08:19 12/31/24 08:19 12/31/24 08:19
Lab Results
12/29/24 04:49
12/28/24 04:30
Calcium 8.1 mg/dl (8.4-10.2) L 12/28/24 04:30
Total Bilirubin 1.0 mg/dl (0.2-1.3) 12/23/24 10:00
AST 20 U/L (17-59) 12/23/24 10:00
ALT 18 U/L (0-50) 12/23/24 10:00
Alkaline Phosphatase 104 U/L (38-126) 12/23/24 10:00
Total Protein 6.2 g/dl (6.3-8.2) L 12/23/24 10:00
Albumin 2.9 g/dl (3.5-5.0) L 12/25/24 04:10
Physical Exam
-
NAD
ABD soft, nt, nd
Midline incision with intact audelia. Ekaterina removed.
[2024-12-31] MEDS: TYLENOL PO (11:52)
[2024-12-31 15:30] VITALS: BP 130/62
--- NOTE | 2024-12-31 15:30 | W.DCSUMMARY ---
Discharge Summary
Discharge Data
Date of Admission: 12/23/24
Date of Discharge: 12/31/24
Total time spent discharging patient (in min): 37
-
Pending Results: Yes
Additional Pending Results:
Follow-up biopsy/pathology results from hospitalization
Hospital Course
84 year old male with past medical history of sigmoid volvulus and bowel resection 2004, clean colonoscopy in 2009 who presented reporting abdominal distention and constipation. Given patient's persistent symptoms, patient was sent to the emergency
room for further evaluation. CT imaging of the abdomen pelvis showed gaseous distention of the sigmoid colon and descending colon with concern for sigmoid volvulus. Gastroenterology was consulted and sigmoidoscopy was performed found to have
suspected volvulus around 35-40cm - narrowing and mildly twisted but able to get the scope through; successful complete decompression was achieved and decompression tube placed. Colorectal surgery was also consulted. Cardiology was consulted given
the mass effect on the mediastinum and recent history of dyspnea on exertion and remote history of atrial fibrillation. On 12/27/24, patient had exploratory laparotomy, lysis of adhesions, sigmoidectomy with EEA stapled anastomosis, flexible
sigmoidoscopy; TAP block performed by anesthesia. Patient's diet was able to be advanced, he did well, and was stable for discharge with outpatient follow-up. Amlodipine and Lisinopril were started during the hospitalization for high blood pressure.
Discharge Plan
-
Patient Disposition: Home with Home Care
Discharge Diagnosis/Procedures: Subacute partial sigmoid volvulus
Exploratory laparotomy, lysis of adhesions, sigmoidectomy with EEA stapled anastomosis, flexible sigmoidoscopy; TAP block performed by anesthesia
PACs - seen on telemetry
Essential Hypertension
Anxiety/depression
Diet: Low Residue
Activity: No strenuous activity
Additional Activity: No lifting over 10lbs (gallon of milk)
Driving Restrictions: No driving for 1 week
Bathing Restrictions: OK to Shower
Other Services: VN
Wound Care: Cover midline incision with gauze or ABD pad and paper tape. Change daily and as needed. Okay to remove to shower.
Eda will be removed at your follow up appointment 2-3 weeks after surgery.
Instructions: Low-fiber diet
Referrals:
Nagi Wise MD [Active] - in two weeks
Cisco Farris MD [Family Provider] - in less than 1 week
Additional Discharge Medication Instructions: Tylenol, Amlodipine and Lisinopril are new medications.
Aspirin, Lecithin and Saw Emmett are on hold until you discuss with your primary care provider whether or not to resume these medications.
Prescriptions:
New
amlodipine 5 mg Tablet
5 mg PO DAILY Qty: 30 1RF
acetaminophen [Tylenol Extra Strength] 500 mg Tablet
1,000 mg PO Q8H Qty: 30 0RF
lisinopril 10 mg Tablet
10 mg PO DAILY Qty: 30 1RF
Continued
therapeutic multivitamin Tablet
1 tab PO DAILY
lorazepam 0.5 mg Tablet
0.25 mg PO DAILY
ascorbic acid (vitamin C) [Vitamin C] 500 mg Tablet
500 mg PO DAILY
vitamin B complex Tablet
1 tab PO DAILY
escitalopram oxalate [Lexapro] 5 mg Tablet
5 mg PO DAILY
cholecalciferol (vitamin D3) [Vitamin D3] 25 mcg (1,000 unit) Tablet
25 mcg PO DAILY
PreserVision AREDS 2,148 mcg-113 mg-45 mg-17.4mg Tablet
1 tab PO DAILY
Held
aspirin 81 mg Tablet,Delayed Release (Dr/Ec)
81 mg PO DAILY
Hold Instructions: Resume on 04/01/25. Discuss with your colorectal surgeon and primary care provider regarding if and when to resume this medication.
saw palmetto 160 mg Capsule
160 mg PO DAILY
Hold Instructions: Resume on 01/28/25. Discuss with your primary care provider regarding if and when to resume this medication.
lecithin 400 mg Capsule
400 mg PO DAILY
Hold Instructions: Resume on 01/28/25. Discuss with your primary care provider regarding if and when to resume this medication.
Discharge Orders:
Discharge Patient (As Directed); Ordered 12/31/24
Ordered By: Juma Betancourt
Discharge Date and Time
Discharge Date/Time: 12/31/24 16:00
Print Language: SPANISH
== END 2024-12-31 16:00 | disposition home health service (06) | DRG 331 ==
LOC: 2 SOUTH 16:30
PROVIDERS: Internal Medicine; Physician Assistant; Registered Nurse; ADMITTING PHYSICIAN Internal Medicine; ATTENDING PHYSICIAN Hospitalist; CONSULT PHYSICIAN Internal Medicine; CONSULT PHYSICIAN Surgery; EMERGENCY PHYSICIAN Emergency Medicine; FAMILY PHYSICIAN Family Medicine; OTHER PHYSICIAN Internal Medicine
PROC: 0D9 Gastrointestinal System, Drainage (ICD-10-PCS; 2024-12-23)
PROC: 0DBN0ZZ Excision of Sigmoid Colon, Open Approach (ICD-10-PCS; 2024-12-27)
PROC: 0DJD8ZZ Inspection of Lower Intestinal Tract, Via Natural or Artificial Opening Endoscopic (ICD-10-PCS; 2024-12-27)
DX: K56.2 Volvulus (principal); F32.A Depression, unspecified; F41.9 Anxiety disorder, unspecified; I10 Essential (primary) hypertension; K59.4 Anal spasm; I48.91 Unspecified atrial fibrillation; Z80.0 Family history of malignant neoplasm of digestive organs; Z98.0 Intestinal bypass and anastomosis status; Z90.49 Acquired absence of other specified parts of digestive tract; Z79.82 Long term (current) use of aspirin
CPT/HCPCS: 88307; 71046; 74018; 74019; 74177; 80048; 80053; 82040; 83605; 84134; 84443; 85025; 85027; 85610; 85730; 86140; 86850; 86900; 86901; 93005; 97162; 97530; 99284; C1776; J1335; Q9967

== ENCOUNTER 2025-05-11 06:08 | Day surgery (SDC) | payer OTHER, SELFPAY ==
[2025-05-11 06:45] VITALS: BP 180/86; BMI 29.7
[2025-05-11 07:00] VITALS: BMI 29.7
[2025-05-11 08:32] VITALS: BP 153/70
[2025-05-11 08:45] VITALS: BP 168/80
[2025-05-11 09:01] VITALS: BP 161/75
== END 2025-05-11 09:08 | disposition home or self-care (01) ==
LOC: GI 06:08
PROVIDERS: ATTENDING PHYSICIAN Internal Medicine Gastroenterology
DX: Z12.11 Encounter for screening for malignant neoplasm of colon (principal); Q43.8 Other specified congenital malformations of intestine; T18.4XXA Foreign body in colon, initial encounter; W44.8XXA Other foreign body entering into or through a natural orifice, initial encounter; K62.89 Other specified diseases of anus and rectum; K59.39 Other megacolon; D12.0 Benign neoplasm of cecum; Z86.0100 Personal history of colon polyps, unspecified
CPT/HCPCS: 45380; 88305

== ENCOUNTER 2025-08-10 06:22 | Day surgery (SDC) | payer OTHER, SELFPAY ==
[2025-08-10 06:54] VITALS: BMI 28.3
[2025-08-10 07:01] VITALS: BMI 28.3
[2025-08-10 07:26] VITALS: BP 153/78
[2025-08-10 10:25] VITALS: BP 144/79
[2025-08-10 10:40] VITALS: BP 145/73
[2025-08-10 10:55] VITALS: BP 150/75
[2025-08-10 11:04] VITALS: BP 145/73
== END 2025-08-10 11:05 | disposition home or self-care (01) ==
LOC: GI 06:22
PROVIDERS: ATTENDING PHYSICIAN Internal Medicine Gastroenterology
DX: D12.0 Benign neoplasm of cecum (principal); D12.2 Benign neoplasm of ascending colon; K64.0 First degree hemorrhoids; K56.2 Volvulus; T18.4XXA Foreign body in colon, initial encounter; W44.9XXA Unspecified foreign body entering into or through a natural orifice, initial encounter; Z98.0 Intestinal bypass and anastomosis status
CPT/HCPCS: 45390; 88305